=== PATIENT | male | born 1945 | race Caucasian/White ===

== ENCOUNTER 2019-05-16 12:40 | Outpatient (RCR) | payer OTHER, SELFPAY ==
[2019-02-22 13:29] LABS: INR 2.6; Prothrombin Time 27.3 Seconds (11.1-14.7)
[2019-03-25 15:11] LABS: INR 4.1; Prothrombin Time 39.2 Seconds (11.1-14.7)
[2019-03-28 14:30] LABS: INR 2.5; Prothrombin Time 26.6 Seconds (11.1-14.7)
[2019-04-04 15:50] LABS: INR 2.5; Prothrombin Time 26.8 Seconds (11.1-14.7)
[2019-04-11 14:35] LABS: INR 2.2; Prothrombin Time 23.6 Seconds (11.1-14.7)
[2019-04-25 14:33] LABS: INR 2.8; Prothrombin Time 29.1 Seconds (11.1-14.7)
[2019-05-16 13:59] LABS: Alanine Aminotransferase 20 U/L (4-50); Albumin Level 3.9 g/dL (3.5-5.1); Alkaline Phosphatase 71 U/L (38-126); Aspartate Amino Transferase 25 U/L (17-59); Bilirubin,Total 0.6 mg/dL (0.2-1.3); Blood Urea Nitrogen 22 mg/dL (9-20); Calcium 9.4 mg/dL (8.4-10.2); Carbon Dioxide 27 mmol/L (22-30); Chloride 100 mmol/L (98-107); Cholesterol 108 mg/dL (0-200); Estimated Glomerular Filt Rate > 60; Glucose 140 mg/dL (75-110); HDL Direct 38 mg/dL; Potassium 3.7 mmol/L (3.4-5.0); Sodium 142 mmol/L (137-145); Triglycerides 103 mg/dL (<150)
[2019-05-16 14:05] LABS: INR 2.3; Prothrombin Time 25.1 Seconds (11.1-14.7)
[2019-05-16 14:10] LABS: LDL Cholesterol Direct 56 mg/dL
[2019-05-16 14:29] LABS: Hemoglobin A1C 6.3 % (<5.7); Prostate Specific Antigen 0.6 ng/mL (< OR = 4.0)
== END 2019-05-23 23:59 | disposition home or self-care (01) ==
LOC: ANHLAB 12:40
PROVIDERS: PCP Emergency Medicine
DX: Z51.81 Encounter for therapeutic drug level monitoring (principal); I48.91 Unspecified atrial fibrillation; E11.9 Type 2 diabetes mellitus without complications; E78.5 Hyperlipidemia, unspecified; Z79.01 Long term (current) use of anticoagulants; Z12.5 Encounter for screening for malignant neoplasm of prostate
CPT/HCPCS: 36415; 80053; 80061; 83036; 84153; 85610; G0103

== ENCOUNTER 2020-01-23 14:42 | Outpatient (CLI) | payer OTHER, SELFPAY ==
--- NOTE | ~2020-01-23 | XR_ITS ---
XR chest 2V DATE: 01/23/2020 15:03 INDICATION: Chronic obstructive pulmonary disease TECHNIQUE: PA and lateral views COMPARISON: 01/04/2019 PA and lateral chest FINDINGS: There is interval resolution of bibasilar infiltrate or atelectasis and small pleural effus ions since 01/04/2019. Borderline heart size. Aortic arch calcification. No hilar or mediastinal enlargement. IMPRESSION: Interval virtual resolution of mild bibasilar infiltrate or atelectasis and small pleural effusions since 01/04/2019 Reviewed, dictated and finalized at location A. IMPRESSION: Interval virtual resolution of mild bibasilar infiltrate or atelect asis and small pleural effusions since 01/04/2019
== END 2020-01-23 14:43 | disposition home or self-care (01) ==
LOC: ANHIMG 14:49
PROVIDERS: PCP Student in an Organized Health Care Education/Training Program; Visit Provider Internal Medicine Critical Care Medicine
DX: J44.9 Chronic obstructive pulmonary disease, unspecified (principal)
CPT/HCPCS: 71046

== ENCOUNTER 2020-02-19 08:40 | Outpatient (CLI) | payer OTHER, SELFPAY ==
[2020-02-19 08:45] VITALS: PULSE 74; O2SAT 92
[2020-02-19 08:50] VITALS: PULSE 85; O2SAT 86
[2020-02-19 08:55] VITALS: PULSE 90; O2SAT 88
[2020-02-19 09:00] VITALS: PULSE 92; O2SAT 90
[2020-02-19 09:15] VITALS: PULSE 75; O2SAT 92
--- NOTE | 2020-02-19 11:00 | HOMEO2EVAL ---
Home Oxygen Evaluation RC: Home Oxygen (O2) Evaluation Start: 02/19/20 10:58 Freq: Status: Active Protocol: RPE Activity Type Activity Date Activity User E-Sign Co-Sign Detail Recorded Client Recorded Date Recorded By Document 02/19/20 08:45 [email or web address] [id number] 02/19/20 11:00 DJO Document 02/19/20 08:50 [email or web address] [email or web address] 02/19/20 11:00 DJO Document 02/19/20 08:55 [email or web address] [email or web address] 02/19/20 11:00 DJO Document 02/19/20 09:00 [email or web address] [email or web address] 02/19/20 11:00 DJO Document 02/19/20 09:15 [email or web address] [email or web address] 02/19/20 11:00 DJO 02/19/20 02/19/20 02/19/20 08:45 08:50 08:55 Home O2 Evaluation Test Phase Resting Exercise Exercise Oxygen Delivery Room Air Room Air Nasal Cannula Oxygen Flow Rate (L/min) 1 Pulse Oximetry (90-100 %) 92 86 L 88 L Pulse Rate (60-100 beats/min) 74 85 90 Ambulation Distance (feet) Treatment Charges O2 Evaluation 02/19/20 02/19/20 09:00 09:15 Home O2 Evaluation Test Phase Exercise Resting Oxygen Delivery Nasal Cannula Room Air Oxygen Flow Rate (L/min) 2 Pulse Oximetry (90-100 %) 90 92 Pulse Rate (60-100 beats/min) 92 75 Ambulation Distance (feet) 500 Treatment Charges
--- NOTE | 2020-02-21 12:09 | WPDPFTINT ---
PFT Interpretation PFT Interpretation: This PFT met all criteria for ATS standards and reproducibility FEV/FVC post bronchodilator 69% FEV1 77% or 2.01 liters FVC 76% or 2.94 liters TLC 104% RV 111% RV/TLC 44% DLCO 58% when adjusted for alveolar volume but not adjusted for hemoglobin Flow volume loops showed significant airflow obstruction Impression: Moderate airflow obstruction with moderately reduced diffusion capacity. This pattern is suggestive of COPD. Clinical correlation is advised.
== END 2020-02-19 08:41 | disposition home or self-care (01) ==
PROVIDERS: PCP Student in an Organized Health Care Education/Training Program; Visit Provider Internal Medicine Critical Care Medicine
DX: J44.9 Chronic obstructive pulmonary disease, unspecified (principal); R94.2 Abnormal results of pulmonary function studies
CPT/HCPCS: 94618

== ENCOUNTER → 2020-05-01 12:47 | Outpatient (CLI) | payer OTHER, SELFPAY ==
--- NOTE | ~2020-05-01 | US_ITS ---
EXAMINATION: US retroperitoneal comp EXAM DATE: 05/01/2020 13:09 INDICATION: Elevated BUN and serum creatinine. TECHNIQUE: Multiple grayscale and Doppler images of the kidneys were obtained (by a technologist who performed the scan) and subsequently reviewed. Comparison is made to prior examination from 04/14/2014 . FINDINGS: Right kidney: There is normal contour and echogenicity. It measures 11.2 x 6.8 x 5.7 centimeters. T here are no focal renal lesions identified. There is no hydronephrosis. Left kidney: There is normal contour and echogenicity. It measures 11.9 x 6.1 x 7.1 centimeters. The re are several lesions consistent with cysts measuring up to 5 cm. There is no hydronephrosis. Bladder unremarkable. IMPRESSION: 1. Left renal cysts. 2. No hydronephrosis. Reviewed, dictated and finalized at location B. [employer] DEVELOPER
== END ==
PROVIDERS: PCP Student in an Organized Health Care Education/Training Program; Visit Provider Student in an Organized Health Care Education/Training Program
DX: R79.89 Other specified abnormal findings of blood chemistry (principal); R79.9 Abnormal finding of blood chemistry, unspecified; N28.1 Cyst of kidney, acquired
CPT/HCPCS: 76770

== ENCOUNTER 2020-06-06 22:12 | Observation (INO) | payer OTHER, SELFPAY ==
--- NOTE | ~2020-06-06 | XR_ITS ---
EXAMINATION: XR chest 1V portable DATE: 06/06/2020 22:35 INDICATION: Fever. TECHNIQUE: A single frontal view of the chest was obtained. COMPARISON: Chest 2 views 01/23/2020, CT abdomen and pelvis 07/28/16 FINDINGS: There is no pneumonia, pleural effusion, or pneumothorax. Cardiomegaly is noted. IMPRESSION: 1. Cardiomegaly. Reviewed, dictated and finalized at location A. IMPRESSION: 1. Cardiomegaly.
--- NOTE | 2020-06-06 22:11 | PC.NURSE ---
Pt presents to ED from home with complaints of bilateral lower extremity weakness. Pt states he was attempting to ambulate and slid out of the bed . Pt states that he did not hit his head and denies all pain and discomfort. No obvious injuries noted to head, face and extremities. Pt states he has been having persistent headaches but denies headaches at this time. Pt alert and oriented x4. Resting on cart in its lowest position with call button and personal items within reach. Pt advised to press call button for assistance.
[2020-06-06 22:13] VITALS: BP 141/77; PULSE 78; RESP 21; TEMP 38.1; O2SAT 93
--- NOTE | 2020-06-06 22:18 | ED.WEAKNESS ---
HPI - Weakness General Chief complaint: Weakness Stated complaint: weakness Time Seen by Provider: 06/06/20 22:12 History of Present Illness HPI Narrative: 74 yo male w/ h/o DM, htn, hypothyroidism presents to the ED for weakness. He reportedly slid to the ground and was too weak to get himself off the ground. On arrival to the ED he has a temperature of 100.5. He denies any other symptoms at this time. He completed his COVID-19 vaccination yesterday. Related Data Home Medications Medication Instructions Recorded Confirmed latanoprost 0.005 % eye drops See Rx Instructions .ROUTE .COMPLEX 02/01/19 albuterol sulfate 90 mcg/actuation 2 puff INHALATION Q4-6H PRN gm 03/12/19 02/26/20 aerosol inhaler amlodipine 10 mg tablet 10 mg PO DAILY 03/12/19 02/26/20 ascorbate calcium (vitamin C) 500 500 mg PO DAILY 03/12/19 02/26/20 mg tablet aspirin 81 mg tablet,delayed 81 mg PO DAILY 03/12/19 02/26/20 release chlorthalidone 25 mg tablet 25 mg PO DAILY 03/12/19 02/26/20 cholecalciferol (vitamin D3) 50 2,000 unit PO DAILY 03/12/19 02/26/20 mcg (2,000 unit) capsule flaxseed 1,000 mg capsule mg PO .BID daily cap 03/12/19 02/26/20 hydralazine 50 mg tablet 50 mg PO .TID with food tablet 03/12/19 02/26/20 lisinopril 40 mg tablet 40 mg PO DAILY 03/12/19 02/26/20 metformin 1,000 mg tablet See Rx Instructions .ROUTE .COMPLEX 03/12/19 02/26/20 multivit,Ca,min-iron 8 mg-folic tablet PO .Daily tablet 03/12/19 02/26/20 acid 200 mcg-lycopene 600 mcg tablet rytdkqwntpgk-wyelccav-pgxuat tablet 1 tablet PO DAILY 03/12/19 02/26/20 sertraline 25 mg tablet See Rx Instructions .ROUTE .COMPLEX 03/12/19 02/26/20 sodium chloride 5 % eye drops See Rx Instructions .ROUTE .COMPLEX 03/12/19 02/26/20 timolol 0.5 % eye drops See Rx Instructions .ROUTE .COMPLEX 03/12/19 02/26/20 timolol maleate 0.5 % eye drops 1 drop EACH EYE DAILY ml 03/12/19 02/26/20 warfarin 2 mg tablet See Rx Instructions .ROUTE .COMPLEX 03/12/19 02/26/20 Allergies Allergy/AdvReac Type Severity Reaction Status Date / Time latex AdvReac Unknown Unknown Verified 02/26/20 13:12 Sulfa (Sulfonamide AdvReac Unknown unk Verified 02/26/20 13:12 Antibiotics) Review of Systems Review of Systems: All systems reviewed & are unremarkable except as noted in HPI and below Constitutional: Constitutional: Reports fever(s) and Reports weakness Eyes: Eyes: Reports no additional eye complaints ENT: Denies sore throat Cardiovascular: Cardiovascular: Denies chest pain Respiratory: Respiratory: Denies dyspnea Gastrointestinal: Gastrointestinal: Denies abdominal pain, Denies nausea and Denies vomiting Genitourinary: Genitourinary: Denies hematuria, Denies dysuria and Reports urinary frequency Musculoskeletal: Musculoskeletal: Denies back pain Neurologic: Denies dizziness, Denies headache(s) and Reports weakness Endocrine: Endocrine: Reports polyuria PMFSH Past Medical History Medical History (Updated 06/07/20 @ 00:03 by Gabriel Calloway MD) Chronic obstructive pulmonary disease Diabetes mellitus HLD (hyperlipidemia) HTN (hypertension) PETER (obstructive sleep apnea) Family History Family History Sibling Family history of cardiovascular disease Family history of Alzheimer's disease Father Family history of cardiovascular disease, Onset Age: 89 Social History Social History Smoking status: Heavy tobacco smoker Alcohol intake: never Exam Const: General: no acute distress, alert and ill appearing Orientation/consciousness: patient oriented x3 HENMT: Head: normal to inspection Neck: Neck: normal visual inspection and no lymphadenopathy Chest: Chest palpation & inspection: no tenderness Resp: Effort & Inspection: normal respiratory effort Auscultation: clear to auscultation bilaterally, no rales, no rhonchi and no wheezes Cardio:
[2020-06-06 22:29] VITALS: BP 141/77; PULSE 84; RESP 21; O2SAT 98
--- NOTE | 2020-06-06 22:29 | PC.NURSE ---
CXR completed at bedside.
[2020-06-06 22:58] LABS: Basophils Percent Auto 0.4 % (0.2-1.2); Eosinophils Absolute Auto 0.1 K/mm3 (0-0.3); Hematocrit 39.9 % (42.0-52.0); Hemoglobin 12.8 g/dL (14.0-18.0); Immature Granulocyte Absolute 0.03 K/mm3 (0.00-0.031); Immature Granulocyte Percent A 0.4 % (0-0.5); Lymphocytes Absolute Auto 0.64 K/mm3 (0.9-3.2); Lymphocytes Percent Auto 8.4 % (18.3-44.2); Mean Corpuscular HGB Conc 32.1 g/dl (32-36); Mean Corpuscular Hemoglobin 31.6 pg (26-34); Mean Corpuscular Volume 98.5 fl (80-100); Mean Platelet Volume 10.2 fl (7.4-10.4); Monocytes Absolute Auto 0.8 K/mm3 (0.1-0.6); Monocytes Percent Auto 10.4 % (2.6-8.5); Neutrophils Absolute Auto 6.1 K/mm3 (1.3-6.7); Neutrophils Percent Auto 79.4 % (45.5-73.1); Platelet Count Result 156 k/mm3 (150-375); Red Blood Count 4.05 M/mm3 (4.6-6.20); Red Cell Distribution Width 14.5 % (11.5-14.5); White Blood Count 7.6 K/mm3 (4.5-10.0)
[2020-06-06 23:08] LABS: INR 1.4; Prothrombin Time 18.2 Seconds (11.1-14.7)
[2020-06-06 23:09] LABS: Partial Thromboplastin Time 34.2 SECONDS (22.3-36.8)
[2020-06-06 23:14] LABS: Lactic Acid Reflex 1.5 mmol/L (0.7-2.1)
[2020-06-06 23:15] LABS: Alanine Aminotransferase 15 U/L (4-50); Albumin Level 4.1 g/dL (3.5-5.1); Alkaline Phosphatase 71 U/L (38-126); Anion Gap 7 mmol/L (8-16); Aspartate Amino Transferase 22 U/L (17-59); Bilirubin,Total 0.6 mg/dL (0.2-1.3); Blood Urea Nitrogen 28 mg/dL (9-20); CRP 2.2 mg/dL (<1.0); Calcium 9.4 mg/dL (8.4-10.2); Carbon Dioxide 32 mmol/L (22-30); Chloride 99 mmol/L (98-107); Estimated CRCL calculation 56 ml/min; Estimated Glomerular Filt Rate 54; Glucose 177 mg/dL (75-110); Potassium 3.8 mmol/L (3.4-5.0); Sodium 138 mmol/L (137-145)
[2020-06-06 23:37] LABS: Add Urine Microscopic? YES; Appearance Urine Clear (Clear); Bilirubin Urine Negative (Negative); Blood Urine 1+ (Negative); Color Urine Yellow (Yellow); Glucose Urine UA Negative (Negative); Hyaline Casts Urine 15-19 /lpf; Ketones Urine Negative (Negative); Leukocyte Esterase Ur Negative LEU/UL (Negative); Mucus Urine Rare /lpf; Nitrate Urine Negative (Negative); Protein Urine 1+ mg/dL (Negative); RBC Urine 0-2 /hpf (0-2); Specific Grav Ur 1.013 (1.001-1.035); Squamous Epithelial Cell Urine Rare /hpf (Few); Urobilinogen Urine Negative mg/dL (<2.0); WBC Urine 0-3 /hpf
[2020-06-06 23:48] VITALS: BP 151/69; PULSE 70; RESP 23; O2SAT 95
--- NOTE | 2020-06-06 23:48 | PC.NURSE ---
Pt resting on cart in its lowest position. Pt noted to desaturate to 80%. Nasal cannula replaced as the cannula he presented with was not functioning properly. Pt resting on cart in its lowest position with call button and personal items within reach. Pt advised to press call button for assistance.
[2020-06-07] VITALS (12 sets, daily range): BP systolic 98–132; BP diastolic 50–88; PULSE 48–74; RESP 16–28; TEMP 36.6–37.4; O2SAT 94–98; BMI 39.6
--- NOTE | 2020-06-07 00:54 | PC.NURSE ---
Pt resting on cart in its lowest position with call button and personal items within reach. SBAR faxed to #rd Med/Surg.
--- NOTE | 2020-06-07 01:16 | PC.NURSE ---
Report called to receiving nurse, Samuel. NICOLE to send pt to floor.
--- NOTE | 2020-06-07 04:50 | ADMGEN ---
This patient, Shon Bradley, was admitted to [facility] Surg Room 307-01. Patient/family oriented to hospital policies and general routines including ID bracelet, bed and alarms, visiting hours, pain management, procedures, bathroom and other care routines, personal items, smoking policy, room service/diet, and visiting hours. Information on how to activate the Rapid Response Team has been discussed. Patient/Family are encouraged to report perceived risks to care and to ask questions if they do not understand what they are told or what they should do.
[2020-06-07 08:20] LABS: Glucose Point of Care 145 (65-105)
[2020-06-07] MEDS: DEXTROSE 5%/0.9% SOD CHL 1,000 ML 80 ML IV CONT ×2 (08:21→20:52)
--- NOTE | 2020-06-07 08:58 | PM.IMHP ---
H&P: HPI History of Present Illness Date/Time: 06/07/20 08:58 Chief Complaint: 1 generalized weakness. 2. Fever 100.5. Narrative: 74 years old male with history of hypertension, history of high cholesterol, obesity, coronary artery disease was admitted through emergency room last night with complaints the patient received COVID vaccination yesterday and after few hours of COVID vaccination administration patient started feeling body ache, generalized weakness. On arrival in ER patient had a fever of 100.5. Patient denies any shortness of breath chest pain. No nausea vomiting. No tongue swelling. Since admission patient is afebrile now and has good strength. Patient is feeling fine at present time. Review of Systems Review of Systems: All systems reviewed & are unremarkable except as noted in HPI and below (the history and physical exam.) [facility] Past Medical History Medical History (Updated 06/07/20 @ 09:08 by Fidel Vance MD) Chronic obstructive pulmonary disease Diabetes mellitus HLD (hyperlipidemia) HTN (hypertension) PETER (obstructive sleep apnea) Family History Family History Sibling Family history of cardiovascular disease Family history of Alzheimer's disease Father Family history of cardiovascular disease, Onset Age: 89 Social History Social History Smoking status: Former smoker Tobacco type: cigarettes Smoking end date: 12/04/19 Alcohol intake: never Substance use: never Gender identity (if verbalized by the patient): Male Spiritual care concerns: No Meds Home Medications and Allergies Home Medications Medication Instructions Recorded Confirmed Type ascorbate calcium (vitamin C) 500 500 mg PO DAILY 03/12/19 06/07/20 History mg tablet aspirin 81 mg tablet,delayed 81 mg PO DAILY 03/12/19 06/07/20 History release chlorthalidone 25 mg tablet 25 mg PO DAILY 03/12/19 06/07/20 History sertraline 25 mg tablet mg PO DAILY 03/12/19 02/26/20 History sodium chloride 5 % eye drops See Rx Instructions .ROUTE .COMPLEX 03/12/19 02/26/20 History timolol maleate 0.5 % eye drops 1 drop EACH EYE DAILY ml 03/12/19 06/07/20 History latanoprost 0.005 % eye drops See Rx Instructions .ROUTE 03/22/19 06/07/20 Rx .COMPLEX #2.5 ml atorvastatin 40 mg tablet 40 mg PO DAILY #90 tablet 03/25/19 06/07/20 Rx acyclovir 400 mg PO QID 06/07/20 06/07/20 History apixaban [Eliquis] mg PO BID 06/07/20 History doxycycline monohydrate 100 mg PO DAILY 06/07/20 06/07/20 History ferrous sulfate 325 mg PO DAILY 06/07/20 06/07/20 History lisinopril 5 mg PO DAILY 06/07/20 06/07/20 History metoprolol succinate 25 mg PO Q12H 06/07/20 06/07/20 History potassium chloride [Klor-Con M20] 20 meq PO DAILY 06/07/20 06/07/20 History Allergies Allergy/AdvReac Type Severity Reaction Status Date / Time latex AdvReac Unknown Unknown Verified 02/26/20 13:12 Sulfa (Sulfonamide AdvReac Unknown unk Verified 02/26/20 13:12 Antibiotics) Vital Signs Vital Signs - 24 hr 06/06/20 22:13 06/06/20 22:29 06/06/20 23:48 Temperature 38.1 C H Pulse Rate 78 84 70 Respiratory Rate 21 H 21 H 23 H Blood Pressure 141/77 H 141/77 H 151/69 H Pulse Oximetry 93 98 95 06/07/20 00:55 06/07/20 03:00 06/07/20 04:00 Temperature 36.9 C 37.0 C Pulse Rate 74 62 72 Respiratory Rate 16 18 Blood Pressure 107/53 L 98/50 L Pulse Oximetry 95 95 94 06/07/20 08:16 06/07/20 08:40 Temperature 36.8 C Pulse Rate 65 Respiratory Rate 20 Blood Pressure 114/59 L Pulse Oximetry 95 95 Exam Narrative: Exam Narrative: Const: General: no acute distress, alert and ill appearing Orientation/consciousness: patient oriented x3 HENMT: Head: normal to inspection Neck: Neck: normal visual inspection and no lymphadenopathy Chest: Chest palpation & inspection: no tenderness Resp: Effort & Inspection: normal respira
[2020-06-07] MEDS: POTASSIUM CHLORIDE 20 MEQ TABLET.ER PO (11:46)
[2020-06-07] MEDS: CHLORTHALIDONE 25 MG TABLET PO (11:46)
[2020-06-07] MEDS: METOPROLOL SUCCINATE EXT REL 25 MG TABCR PO (11:46)
[2020-06-07] MEDS: ASPIRIN 81 MG ENTERIC TABLET PO (11:46)
[2020-06-07] MEDS: FERROUS SULFATE 324 MG TABLET PO (11:46)
[2020-06-07] MEDS: lisinopriL 5 MG TABLET PO (11:47)
[2020-06-07] MEDS: ACYCLOVIR 400 MG TABLET PO ×4 (11:47→20:52)
[2020-06-07] MEDS: ASCORBIC ACID 500 MG TABLET PO (11:47)
[2020-06-07] MEDS: TIMOLOL MALEATE 0.5% OP SOLN 5 ML BOTTLE 1 DROP EACH EYE (11:47)
[2020-06-07] MEDS: DOXYCYCLINE HYCLATE 100 MG TABLET PO (11:47)
[2020-06-07] MEDS: APIXABAN 5 MG TABLET PO ×2 (11:47→17:24)
[2020-06-07] MEDS: ATORVASTATIN 40 MG TABLET PO (11:47)
[2020-06-07 12:36] LABS: Glucose Point of Care 251 (65-105)
[2020-06-07] MEDS: INSULIN ASPART (*BKC) 100 UNITS/ML SUB-Q (13:19)
[2020-06-07 16:54] LABS: Glucose Point of Care 195 (65-105)
[2020-06-07] MEDS: LATANOPROST 0.005% OP SOLN 2.5 ML BTL 1 DROP EACH EYE (20:52)
--- NOTE | 2020-06-07 21:40 | PC.NURSE ---
Patient heart rate drops into the 40's is asymptomatic during the time and doesn't sustain. Patient is getting very agitated with the heart monitor box beeping. MD said ok to drop the rate alarm. Will continue to monitor the patient and notify MD if needed.
[2020-06-07 22:45] LABS: Glucose Point of Care 209 (65-105)
[2020-06-08] VITALS: PULSE 46
[2020-06-08 01:56] VITALS: PULSE 56; RESP 19; O2SAT 95
[2020-06-08 04:00] VITALS: BP 116/55; PULSE 57; RESP 20; TEMP 36.6; O2SAT 98
[2020-06-08] MEDS: DOXYCYCLINE HYCLATE 100 MG TABLET PO (06:30)
[2020-06-08 06:48] LABS: Potassium 3.9 mmol/L (3.4-5.0)
[2020-06-08 07:58] VITALS: PULSE 51
[2020-06-08 07:59] LABS: Glucose Point of Care 204 (65-105)
[2020-06-08 08:00] VITALS: BP 107/52; PULSE 47; PULSE 50; RESP 18; TEMP 36.4; O2SAT 100
[2020-06-08] MEDS: INSULIN ASPART (*BKC) 100 UNITS/ML SUB-Q ×2 (08:36→12:18)
[2020-06-08] MEDS: TIMOLOL MALEATE 0.5% OP SOLN 5 ML BOTTLE 1 DROP EACH EYE (08:38)
[2020-06-08] MEDS: POTASSIUM CHLORIDE 20 MEQ TABLET.ER PO (08:39)
[2020-06-08] MEDS: ASCORBIC ACID 500 MG TABLET PO (08:39)
[2020-06-08] MEDS: ACYCLOVIR 400 MG TABLET PO ×2 (08:39→12:19)
[2020-06-08] MEDS: ASPIRIN 81 MG ENTERIC TABLET PO (08:39)
[2020-06-08] MEDS: APIXABAN 5 MG TABLET PO (08:39)
[2020-06-08] MEDS: FERROUS SULFATE 324 MG TABLET PO (08:39)
[2020-06-08] MEDS: CHLORTHALIDONE 25 MG TABLET PO (08:39)
[2020-06-08] MEDS: lisinopriL 5 MG TABLET PO (08:40)
[2020-06-08] MEDS: ATORVASTATIN 40 MG TABLET PO (08:40)
[2020-06-08] MEDS: DEXTROSE 5%/0.9% SOD CHL 1,000 ML 80 ML IV CONT (11:10)
[2020-06-08 12:00] VITALS: BP 123/80; PULSE 55; RESP 18; TEMP 36.6; O2SAT 94
[2020-06-08 12:59] LABS: SARS-CoV-2 RNA PCR Negative
[2020-06-08 13:33] LABS: Glucose Point of Care 325 (65-105)
--- NOTE | 2020-06-08 13:57 | PM.DS ---
DS: Admitting Diagnosis Admitting Diagnosis Admitting Diagnosis: Generalized weakness DS: Discharge Diagnosis Discharge Diagnosis (1) Adverse reaction to vaccine: Code(s): T50.Z95A - Adverse effect of other vaccines and biological substances, initial encounter Status: Acute Assessment and Plan: Patient most likely has reaction to the COVID vaccine. Will monitor patient closely at present patient is feeling better. (2) Generalized weakness: Code(s): R53.1 - Weakness Status: Acute Assessment and Plan: Most likely secondary to the vaccination but patient is feeling better now will continue to monitor. (3) Fever: Qualifiers: Encounter type: initial encounter Code(s): R50.9 - Fever, unspecified Status: Acute Assessment and Plan: Patient is afebrile at present most likely it was secondary to COVID vaccine. However blood culture and urine culture have been ordered a chest x-ray is negative (4) PETER (obstructive sleep apnea): Code(s): G47.33 - Obstructive sleep apnea (adult) (pediatric) Status: Acute Assessment and Plan: Stable will continue current plan of treatment. (5) HLD (hyperlipidemia): Qualifiers: Hyperlipidemia type: mixed hyperlipidemia Qualified Code(s): E78.2 - Mixed hyperlipidemia Code(s): E78.5 - Hyperlipidemia, unspecified Status: Acute Assessment and Plan: Stable on current medication. (6) Hypertension: Code(s): I10 - Essential (primary) hypertension Status: Acute Assessment and Plan: Stable on current medication. (7) CAD (coronary artery disease): Code(s): I25.10 - Atherosclerotic heart disease of [place] coronary artery without angina pectoris Status: Acute Assessment and Plan: Stable on current medication. DS: Summary Hospital Course Reason for hospitalization: Chief Complaint: 1 generalized weakness. 2. Fever 100.5. Narrative: 74 years old male with history of hypertension, history of high cholesterol, obesity, coronary artery disease was admitted through emergency room last night with complaints the patient received COVID vaccination yesterday and after few hours of COVID vaccination administration patient started feeling body ache, generalized weakness. On arrival in ER patient had a fever of 100.5. Patient denies any shortness of breath chest pain. No nausea vomiting. No tongue swelling. Since admission patient is afebrile now and has good strength. Patient is feeling fine at present time. Hospital Course: Patient COVID test was negative, has no fever, his clinically stable, most likely patient had a flu-like symptoms after he received COVID vaccine, patient is clinically stable discharge the patient today Status at Discharge Functional status at discharge: independent ambulation Overall status at discharge: patient is back to baseline Time Spent with Patient Time attestation: Total time spent providing and/or coordinating discharge services: Patient was seen and examined at the time of the discharge Condition at discharge is stable Code status: Full code. Time spent preparing discharge summary, discharge medications, discussing discharge planning with case management specialist and patient is 30 minutes. Time spent: Less than 30 minutes Exam Narrative: Exam Narrative: Patient is comfortable, NAD HEENT: eyes are clear and none icteric LUNGS:CTA HEART: RR S1S2 ABD: BS+, Soft and nontender Lower extremities: no edema SKIN: nonjaundiced Neuro: grossly intact. DS: Data Data Completed and Pending Labs on day of discharge: Labs from last 24 hours 06/08/20 06/08/20 06/08/20 12:13 07:57 06:26 Potassium 3.9 POC Capillary Glucose 325 H 204 H SARS-CoV-2 RNA (RT-PCR) 06/07/20 06/07/20 06/06/20 20:51 16:46 23:11 Potassium POC Capillary Glucose 209 H 195 H SARS-CoV-2 RNA (RT-PCR) Negative Preliminary micro results at
== END 2020-06-08 14:50 | disposition home or self-care (01) ==
LOC: ANHED 06-07 00:03 → ANH3MEDSUR 06-07 00:06
PROVIDERS: Internal Medicine; Admitting Provider Family Medicine; Emergency Provider Emergency Medicine; PCP Student in an Organized Health Care Education/Training Program; Visit Provider Family Medicine
DX: R53.1 Weakness (principal); R50.9 Fever, unspecified; T50.Z95A Adverse effect of other vaccines and biological substances, initial encounter; Z20.822 Contact with and (suspected) exposure to COVID-19; E11.9 Type 2 diabetes mellitus without complications; E03.9 Hypothyroidism, unspecified; E78.5 Hyperlipidemia, unspecified; E66.9 Obesity, unspecified; J44.9 Chronic obstructive pulmonary disease, unspecified; G47.33 Obstructive sleep apnea (adult) (pediatric); I10 Essential (primary) hypertension; I25.10 Atherosclerotic heart disease of native coronary artery without angina pectoris; Z87.891 Personal history of nicotine dependence; Z79.4 Long term (current) use of insulin; Z68.39 Body mass index [BMI] 39.0-39.9, adult
CPT/HCPCS: 36415; 71045; 80053; 81001; 82948; 83605; 84132; 85025; 85610; 85730; 86140; 87040; 87086; 87804; 96361; 96365; 99285; A9270; C9803; G0378; J0131; J1815; J7042; U0003; U0005

== ENCOUNTER 2021-01-07 11:01 | Outpatient (CLI) | payer OTHER, SELFPAY ==
--- NOTE | 2021-01-07 11:11 | ECG_ITS ---
Measurements Intervals [place] Rate: 66 P: CA: 0 QRS: 11 QRSD: 112 T: 14 QT: 387 QTc: 407 Interpretive Statements ATRIAL FIBRILLATION BORDERLINE R WAVE PROGRESSION, ANTERIOR LEADS BORDERLINE T WAVE ABNORMALITY- INFERIOR LEADS BASELINE ARTIFACT- I, II, III, AVR, AVL, AVF ABNORMAL ECG Electronically Signed On 01-07-2021 11:29:49 CDT by Awais Crump D.O.
[2021-01-07 12:02] LABS: Hematocrit 46.1 % (42.0-52.0); Hemoglobin 15.1 g/dL (14.0-18.0)
[2021-01-07 12:32] LABS: Anion Gap 12 mmol/L (8-16); Blood Urea Nitrogen 39 mg/dL (9-20); Calcium 9.5 mg/dL (8.4-10.2); Carbon Dioxide 29 mmol/L (22-30); Chloride 101 mmol/L (98-107); Estimated Glomerular Filt Rate 46; Glucose 113 mg/dL (65-110); Sodium 142 mmol/L (137-145)
== END 2021-01-07 11:02 | disposition home or self-care (01) ==
LOC: ANHSURGERY 11:06
PROVIDERS: Anesthesiology; PCP Student in an Organized Health Care Education/Training Program; Visit Provider Dentist
DX: Z01.818 Encounter for other preprocedural examination (principal); E11.9 Type 2 diabetes mellitus without complications; D64.9 Anemia, unspecified; R94.31 Abnormal electrocardiogram [ECG] [EKG]
CPT/HCPCS: 36415; 80048; 85014; 85018; 93005

== ENCOUNTER 2021-01-14 01:59 | Day surgery (SDC) | payer OTHER, SELFPAY ==
[2021-01-01 14:35] VITALS: BMI 36.1
--- NOTE | 2021-01-13 10:55 | WPDANESEPPF ---
Anes - Initial Pre Proc Eval Procedure: Operation Date: 01/14/21 08:30 Proposed Procedures p Extractions of Nine Teeth - Fernandez Diaz DMD Date/Time: 01/13/21 10:55 Surgeon: Fernandez Diaz DMD Pre Op Diagnosis: dental caries, fractured teeth Patient Data Age: 75 Gender: M Height: 1.7 m Weight: 104.54 kg Allergies Allergy/AdvReac Type Severity Reaction Status Date / Time latex AdvReac Unknown SKIN Verified 01/01/21 14:17 IRRITATION Home Medications Medication Instructions Recorded Confirmed Type aspirin 81 mg tablet,delayed 81 mg PO DAILY 03/12/19 01/01/21 History release chlorthalidone 25 mg tablet 25 mg PO DAILY 03/12/19 01/01/21 History sertraline 25 mg tablet 25 mg PO BID 03/12/19 01/01/21 History sodium chloride 5 % eye drops See Rx Instructions .ROUTE .COMPLEX 03/12/19 01/01/21 History timolol maleate 0.5 % eye drops 1 drop EACH EYE DAILY ml 03/12/19 01/01/21 History latanoprost 0.005 % eye drops See Rx Instructions .ROUTE 03/22/19 01/01/21 Rx .COMPLEX #2.5 ml Eliquis 5 mg PO BID 06/07/20 01/01/21 History acyclovir 800 mg PO BID 06/07/20 01/01/21 History doxycycline monohydrate 100 mg PO DAILY 06/07/20 01/01/21 History lisinopril 5 mg PO DAILY 06/07/20 01/01/21 History metoprolol succinate 25 mg PO Q12H 06/07/20 01/01/21 History potassium chloride [Klor-Con M20] 20 meq PO DAILY 06/07/20 01/01/21 History acetaminophen [Tylenol] 650 mg PO QID PRN 01/01/21 01/01/21 History albuterol sulfate 2 puff INHALATION QID PRN 01/01/21 01/01/21 History atorvastatin 40 mg PO HS 01/01/21 01/01/21 History cetirizine [Zyrtec] 10 mg PO DAILY 01/01/21 01/01/21 History cholecalciferol (vitamin D3) 25 mcg PO DAILY 01/01/21 01/01/21 History furosemide 20 mg BID 01/01/21 01/01/21 History methazolamide 50 mg BID 01/01/21 01/01/21 History semaglutide [Ozempic] 1 mg SUBCUT WEEKLY 01/01/21 01/01/21 History Patient hx anesthesia problems: none Family hx anesthesia problems: none Results Review: All pre-operative results and documents have been reviewed as part of the pre-operative evaluation. [facility] Past Medical History Medical History (Updated 01/14/21 @ 07:14 by Fernandez Diaz DMD) Atrial fibrillation CAD (coronary artery disease) CHF (congestive heart failure) Chronic obstructive pulmonary disease Diabetes mellitus HLD (hyperlipidemia) HTN (hypertension) On home O2 PETER (obstructive sleep apnea) Family History Family History Sibling Family history of cardiovascular disease Family history of Alzheimer's disease Father Family history of cardiovascular disease, Onset Age: 89 Social History Social History (Updated 09/29/20 @ 08:26 by Jenelle Cole [facility]) Smoking packs per day: 1 Smoking cigarettes per day: 20.0 Years smoked: 30 Smoking pack-years: 30.00 Smoking status: Former smoker Tobacco type: cigarettes Second hand tobacco smoke exposure: No Smoking end date: 12/04/19 Alcohol intake: never Substance use: never Substance use type: does not use Living arrangements: with family Additional living arrangements comments: LIVES WITH DAUGHTER Gender identity (if verbalized by the patient): Male Spiritual care concerns: No Anes - Eval Final PreProcedure Day of Procedure 01/13/21 10:55 Patient weight: obese Heart: regular rate and rhythm Lungs: clear to auscultation and normal air movement Airway: Mallampati scale class II and special considerations poor dentition Neurological: alert and oriented Last oral intake: >/= 8 hours ASA classification: IV Emergent: no Anesthetic plan: proceed Anesthesia type and monitoring: general ETT and standard monitoring Results Review: All pre-operative results and documents have been reviewed as part of the pre-operative evaluation. Informed Consent: The patient's anesthetic plan and its attendant risks and benefits were discussed with the patient/family/POA
[2021-01-14] VITALS (8 sets, daily range): BP systolic 118–145; BP diastolic 57–82; PULSE 57–86; RESP 18–22; TEMP 36.1–36.6; O2SAT 94–97
[2021-01-14] MEDS: LACTATED RINGERS 1,000 ML 30 ML IV CONT (07:12)
--- NOTE | 2021-01-14 07:13 | WPDHPUPDATE1 ---
History and Physical Update Update Date/Time: 01/14/21 07:13 History and Physical has been reviewed, including an updated exam of the patient. There are NO changes in the patient's condition. Risks, benefits, and alternatives have been discussed and questions answered. Patient agrees to proceed with procedure.
--- NOTE | 2021-01-14 07:14 | PM.IMHP ---
H&P: HPI History of Present Illness Date/Time: 01/14/21 07:14 Chief Complaint: bad teeth PMFSH Past Medical History Medical History (Updated 01/14/21 @ 07:14 by Fernandez Diaz DMD) Atrial fibrillation CAD (coronary artery disease) CHF (congestive heart failure) Chronic obstructive pulmonary disease Diabetes mellitus HLD (hyperlipidemia) HTN (hypertension) On home O2 PETER (obstructive sleep apnea) Family History Family History Sibling Family history of cardiovascular disease Family history of Alzheimer's disease Father Family history of cardiovascular disease, Onset Age: 89 Social History Social History (Updated 09/29/20 @ 08:26 by Jenelle Cole BUSINESS ANALYSIS SPECIALIST) Smoking packs per day: 1 Smoking cigarettes per day: 20.0 Years smoked: 30 Smoking pack-years: 30.00 Smoking status: Former smoker Tobacco type: cigarettes Second hand tobacco smoke exposure: No Smoking end date: 12/04/19 Alcohol intake: never Substance use: never Substance use type: does not use Living arrangements: with family Additional living arrangements comments: LIVES WITH DAUGHTER Gender identity (if verbalized by the patient): Male Spiritual care concerns: No Meds Home Medications and Allergies Home Medications Medication Instructions Recorded Confirmed Type aspirin 81 mg tablet,delayed 81 mg PO DAILY 03/12/19 01/01/21 History release chlorthalidone 25 mg tablet 25 mg PO DAILY 03/12/19 01/01/21 History sertraline 25 mg tablet 25 mg PO BID 03/12/19 01/01/21 History sodium chloride 5 % eye drops See Rx Instructions .ROUTE .COMPLEX 03/12/19 01/01/21 History timolol maleate 0.5 % eye drops 1 drop EACH EYE DAILY ml 03/12/19 01/01/21 History latanoprost 0.005 % eye drops See Rx Instructions .ROUTE 03/22/19 01/01/21 Rx .COMPLEX #2.5 ml Eliquis 5 mg PO BID 06/07/20 01/01/21 History acyclovir 800 mg PO BID 06/07/20 01/01/21 History doxycycline monohydrate 100 mg PO DAILY 06/07/20 01/01/21 History lisinopril 5 mg PO DAILY 06/07/20 01/01/21 History metoprolol succinate 25 mg PO Q12H 06/07/20 01/01/21 History potassium chloride [Klor-Con M20] 20 meq PO DAILY 06/07/20 01/01/21 History acetaminophen [Tylenol] 650 mg PO QID PRN 01/01/21 01/01/21 History albuterol sulfate 2 puff INHALATION QID PRN 01/01/21 01/01/21 History atorvastatin 40 mg PO HS 01/01/21 01/01/21 History cetirizine [Zyrtec] 10 mg PO DAILY 01/01/21 01/01/21 History cholecalciferol (vitamin D3) 25 mcg PO DAILY 01/01/21 01/01/21 History furosemide 20 mg BID 01/01/21 01/01/21 History methazolamide 50 mg BID 01/01/21 01/01/21 History semaglutide [Ozempic] 1 mg SUBCUT WEEKLY 01/01/21 01/01/21 History Allergies Allergy/AdvReac Type Severity Reaction Status Date / Time latex AdvReac Unknown SKIN Verified 01/01/21 14:17 IRRITATION Vital Signs Vital Signs - 24 hr 01/14/21 06:50 Temperature 36.1 C L Pulse Rate 61 Respiratory Rate 18 Blood Pressure 122/66 Pulse Oximetry 97 Assessment and Plan Assessment and plan (1) Non-restorable tooth: Code(s): K08.89 - Other specified disorders of teeth and supporting structures Status: Acute Assessment and Plan: multiple nonrestorable teeth. SR all lower teeth
[2021-01-14 07:20] LABS: Glucose Point of Care 116 mg/dl (65-105)
[2021-01-14] MEDS: OXYMETAZOLINE HCL 0.05% NAS 15 ML BTL (*BKC) 4 SPRAY NASAL (08:48)
[2021-01-14] MEDS: LIDOCAINE 2%-EPI (FOR DENTAL BLOCK) 1.7 ML CARTRIDGE INFILTRATE (08:49)
--- NOTE | 2021-01-14 09:08 | PM.OP ---
Procedure Note - Brief Procedure Note - Brief Date of procedure: 01/14/21 Pre-op diagnosis: dental caries, fractured teeth Surgeon: Fernandez Diaz DMD Preoperative diagnosis nonrestorable mandibular dentition postop diagnosis same procedure surgical removal remaining 9 mandibular teeth numbers [id number] 30 and 31. Complications none. Estimated blood loss 10cc. Anesthesia general anesthesia and 5cc of 2% lidocaine with 100,000 epinephrine. Description of the procedure patient was encountered in the operating room in the care of the Anesthesia Service who induced general anesthetic. Patient was draped in the usual manner for intraoral surgical procedure. Oral cavity was suctioned free of debris and throat pack was placed. Local anesthetic administered. Fifteen blade was used to make a circular incision in the left mandible. Full-thickness flaps elevated the buckle. And buccal trough was created in the remaining teeth were removed using a ring forceps technique without complication. Psych is curetted free of debris and irrigated copious amount sterile saline. Gingival tissues reapproximated using 4-0 chromic gut suture in interrupted fashion. Attention was turned to the right mandible were a sulcular incision was made and a full-thickness flaps elevated the buckle. Buccal trough was created in the teeth removed using elevator and forceps technique without complication. Psych is curetted free of debris and irrigated copious amounts of sterile saline. Gingival tissues reapproximated using 4-0 chromic gut suture in continuous fashion. Oral cavity suctioned free of debris and throat pack was removed. Gauze packs placed. Care the patient was turned to the issues Service extubated the patient transferred to recovery in stable condition.
[2021-01-14 09:16] LABS: Glucose Point of Care 128 mg/dl (65-105)
== END 2021-01-14 10:51 | disposition home or self-care (01) ==
PROVIDERS: PCP Student in an Organized Health Care Education/Training Program; Visit Provider Dentist
PROC: (CPT 41899; principal; 2021-01-14 08:30)
DX: K02.9 Dental caries, unspecified (principal); K08.89 Other specified disorders of teeth and supporting structures; I25.10 Atherosclerotic heart disease of native coronary artery without angina pectoris; I11.0 Hypertensive heart disease with heart failure; I50.9 Heart failure, unspecified; I48.91 Unspecified atrial fibrillation; J44.9 Chronic obstructive pulmonary disease, unspecified; E11.9 Type 2 diabetes mellitus without complications; E78.5 Hyperlipidemia, unspecified; G47.33 Obstructive sleep apnea (adult) (pediatric); Z99.81 Dependence on supplemental oxygen; Z87.891 Personal history of nicotine dependence; E66.9 Obesity, unspecified; Z68.35 Body mass index [BMI] 35.0-35.9, adult; Z79.82 Long term (current) use of aspirin; Z79.01 Long term (current) use of anticoagulants; Z79.51 Long term (current) use of inhaled steroids; Z79.899 Other long term (current) drug therapy
CPT/HCPCS: D7240 ×9; 36415; 80048; 82948; 85014; 85018; 93005; A9270; J0330; J1100; J2405; J2704; J3010; J7120

== ENCOUNTER 2021-10-19 14:45 | Outpatient (RCR) | payer OTHER, SELFPAY | END 2021-10-22 13:51 | disposition home or self-care (01) | LOC: ANHCPREHAB 14:45 | PROVIDERS: PCP Student in an Organized Health Care Education/Training Program; Visit Provider Student in an Organized Health Care Education/Training Program | DX: J43.9 Emphysema, unspecified (principal) | CPT/HCPCS: 93798; G0239 ==

== ENCOUNTER 2022-09-19 10:12 | Inpatient (IN) | payer OTHER, MEDICAID, SELFPAY ==
[2022-09-19] VITALS (41 sets, daily range): BP systolic 90–123; BP diastolic 45–75; PULSE 77–112; RESP 16–29; TEMP 37–39.2; O2SAT 92–100; BMI 33.8
--- NOTE | ~2022-09-19 | US_ITS ---
Renal-Bladder ultrasound Clinical History: Acute kidney injury Technique: Real-time sonographic imaging of the kidneys and urinary bladder was performed. Findings: The right kidney measures 10.7 cm in length and the left kidney measures 11.0 cm. There is no hydronephrosis or renal calculus identified. Renal cortical echogenicity is within normal limits. No solid renal mass lesion is identified. Left renal cysts noted. The urinary bladder is moderately distended at the time of this exam. No intraluminal echoes are iden tified. No abnormal wall thickening is seen. Impression: Unremarkable ultrasound of the kidneys and urinary bladder. Reviewed, dictated and finalized at location M. Impression: Unremarkable ultrasound of the kidneys and urinary bladder.
--- NOTE | ~2022-09-19 | XR_ITS ---
XR chest 2V DATE: 09/19/2022 12:15 INDICATION: Shortness of breath TECHNIQUE: AP and lateral views COMPARISON: 06/06/2020 portable AP chest at 2237 hours FINDINGS: Cardiomegaly. There is pulmonary vascular redistribution which may indicate mild pulmonary venous hypertension. No pulmonary infiltrate or consolidation, pleural effusion or pulmonary vascular congestion or pneumo thorax. Suggestion of a fracture of the lateral aspect of the right sixth rib. Diffuse idiopathic skeletal hyperostosis of the thoracolumbar spine. IMPRESSION: Cardiomegaly, pulmonary vascular redistribution which may indicate mild pulmonary venous hypertension Aortic atherosclerosis Suspected fracture of the lateral right sixth rib Diffuse idiopathic skeletal hyperostosis of the thoracolumbar spine Reviewed, dictated and finalized at location A.
--- NOTE | 2022-09-19 10:16 | ECG_ITS ---
Measurements Intervals [place] Rate: 116 P: DE: 0 QRS: 10 QRSD: 94 T: 31 QT: 316 QTc: 440 Interpretive Statements ATRIAL FIBRILLATION WITH RAPID VENTRICULAR RESPONSE ST DEPRESSION, CONSIDER SUBENDOCARDIAL INJURY [0.1+ mV ST DEPRESSION] ABNORMAL ECG COMPARED TO ECG 01/07/2021 11:23:16 NO SIGNIFICANT CHANGES Electronically Signed On 09-19-2022 10:43:04 CDT by Maurice Garcia M.D.
[2022-09-19 12:15] LABS: Basophils Percent Auto 0.2 % (0.2-1.2); Hematocrit 21.2 % (42.0-52.0); Immature Granulocyte Absolute 0.04 K/mm3 (0.00-0.031); Immature Granulocyte Percent A 0.4 % (0-0.5); Lymphocytes Absolute Auto 0.67 K/mm3 (0.9-3.2); Lymphocytes Percent Auto 6.7 % (18.3-44.2); Mean Corpuscular HGB Conc 30.2 g/dl (32-36); Mean Corpuscular Hemoglobin 29.5 pg (26-34); Mean Corpuscular Volume 97.7 fl (80-100); Mean Platelet Volume 9.8 fl (7.4-10.4); Monocytes Absolute Auto 0.9 K/mm3 (0.1-0.6); Monocytes Percent Auto 8.6 % (2.6-8.5); Neutrophils Absolute Auto 8.4 K/mm3 (1.3-6.7); Neutrophils Percent Auto 84.1 % (45.5-73.1); Platelet Count Result 169 k/mm3 (150-375); Red Blood Count 2.17 M/mm3 (4.6-6.20)
[2022-09-19 12:17] LABS: Hemoglobin 6.4 g/dL (14.0-18.0)
[2022-09-19 12:26] LABS: Alanine Aminotransferase 33 U/L (6-50); Albumin Level 3.3 g/dL (3.5-5.1); Alkaline Phosphatase 68 U/L (38-126); Anion Gap 6 mmol/L (8-16); Aspartate Amino Transferase 45 U/L (17-59); Blood Urea Nitrogen 37 mg/dL (9-20); Calcium 8.1 mg/dL (8.4-10.2); Carbon Dioxide 22 mmol/L (22-30); Chloride 106 mmol/L (98-107); Estimated CRCL calculation 32 ml/min; Estimated Glomerular Filt Rate 33; Glucose 190 mg/dL (65-110); INR 2.3; Partial Thromboplastin Time 36.1 SECONDS (22.3-36.8); Potassium 4.2 mmol/L (3.4-5.0); Prothrombin Time 26.6 Seconds (11.1-14.7); Sodium 134 mmol/L (137-145)
[2022-09-19] MEDS: dilTIAZem HCl INJ 25 MG/5 ML VIAL 10 MG IV PUSH (12:26)
[2022-09-19 12:40] LABS: NT Pro B Type Natriuretic Pept 4410 pg/mL (19.9-100); Troponin I 0.664 ng/mL (0.000-0.034)
[2022-09-19] MEDS: SODIUM CHLORIDE 0.9% IV 250 ML 30 ML IV CONT (13:54)
[2022-09-19] MEDS: TUBING, BLOOD PLUM PUMP TUBING 1 EACH XX ×2 (13:55→17:01)
--- NOTE | 2022-09-19 13:59 | ED.SOB ---
HPI - SOB/Dyspnea General Chief Complaint: Shortness of Breath/Dyspnea Stated Complaint: diff breathing Time Seen by Provider: 09/19/22 11:38 History of Present Illness HPI Narrative: Patient is a 77-year-old male who presents ER with shortness of breath. Worsening over the last couple days. Patient's daughter reports that he is more pale than typical. No chest pain or chest pressure. Patient reports dyspnea is worse with exertion but is now present at rest. No syncope. Patient also reports that he has some pain to his right perez. He struck it the other day has become bruised. It is not red or hot. He is concerned it could be infection however. Patient reports he did not fall when he suffered this injury has no other bruises or injuries to his chest wall or abdomen. Patient also found to be in A-fib on arrival that is rapid. Reports he takes his medications daily. He is on Eliquis. 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. Related Data Home Medications Medication Instructions Recorded Confirmed aspirin 81 mg tablet,delayed 81 mg PO DAILY 03/12/19 09/19/22 release chlorthalidone 25 mg tablet 25 mg PO DAILY 03/12/19 09/19/22 apixaban 5 mg tablet (Eliquis) 5 mg PO Q12H 06/07/20 09/19/22 metoprolol succinate 25 mg 25 mg PO Q12H 06/07/20 09/19/22 tablet,extended release 24 hr albuterol sulfate 90 mcg/actuation 2 puff inhalation QID PRN 01/01/21 09/19/22 aerosol inhaler Shortness Of Breath Or Wheezing atorvastatin 40 mg tablet 40 mg PO 01/01/21 09/19/22 cholecalciferol (vitamin D3) 50 50 mcg PO DAILY 01/01/21 09/19/22 mcg (2,000 unit) tablet semaglutide 1 mg/dose (4 mg/3 mL) 1 mg subcut WEEKLY 01/01/21 09/19/22 subcutaneous pen injector (Ozempic) fluorometholone 0.1 % eye 1 drp LEFT EYE DAILY 10/19/21 09/19/22 drops,suspension fluticasone propionate 50 2 spray intranasal DAILY 10/19/21 09/19/22 mcg/actuation nasal spray,suspension nitroglycerin 0.4 mg sublingual 0.4 mg sublingual Q5-15M PRN Chest 10/19/21 09/19/22 tablet (Nitrostat) Pain umeclidinium 62.5 mcg-vilanterol 1 inh inhalation DAILY 10/19/21 09/19/22 25 mcg/actuation powdr for inhalation (Anoro Ellipta) acetaminophen 500 mg tablet 500 mg PO Q4H PRN Pain 09/19/22 09/19/22 acyclovir 400 mg tablet 400 mg PO Q12H 09/19/22 09/19/22 blood sugar diagnostic (Contour 09/19/22 09/19/22 Next Test Strips) crisaborole 2 % topical ointment 1 applic topical DAILY PRN Bruising 09/19/22 09/19/22 (Eucrisa) furosemide 20 mg tablet See Rx Instructions .Route .COMPLEX 09/19/22 09/19/22 lancets (Microlet Lancet) 09/19/22 09/19/22 lisinopril 20 mg tablet 20 mg PO DAILY 09/19/22 09/19/22 potassium chloride 20 mEq 20 meq PO DAILY 09/19/22 09/19/22 tablet,extended release saliva stimulant comb. no.7 1 ea PO HS 09/19/22 09/19/22 (Biotene Oralbalance (glycerin) mucosal gel) sodium chloride, sodium 1 ea DAILY 09/19/22 09/19/22 bicarb-nasal rinse squeeze bottle with packet (Neilmed Sinus Rinse Complete with packet) Allergies Allergy/AdvReac Type Severity Reaction Status Date / Time Sulfa (Sulfonamide Allergy Intermediate Rash Verified 09/19/22 16:14 Antibiotics) latex AdvReac Unknown SKIN Verified 09/19/22 11:09 IRRITATION Review of Systems Review of Systems: All systems reviewed & are unremarkable except as noted in HPI and below Constitutional: Constitutional: Denies chills, Reports fatigue and Denies fever(s) ENT: Denies nasal congestion and Denies sore throat Cardiovascular: Cardiovascular: Denies chest pain, Denies rapid heart rate and Denies radiating jaw, neck or arm pain Respiratory: Respiratory: Denies cough, Reports dyspnea and Denies wheezing Gastrointestinal: Gastrointestinal: Denies abdominal pain, Denies diarrhea, Denies nausea and Denies vomiting Musculoskeletal: Musculoskeletal: Denies back pain, Denies arthralgias and Denies joint swelling Integumentary/Breasts: Comments: Bruising
--- NOTE | 2022-09-19 15:56 | ADMGEN ---
This patient, Shon Bradley, was admitted to IMU Room 203-01. Patient/family oriented to hospital policies and general routines including ID bracelet, bed and alarms, visiting hours, pain management, procedures, bathroom and other care routines, personal items, smoking policy, room service/diet, and visiting hours. Information on how to activate the Rapid Response Team has been discussed. Patient/Family are encouraged to report perceived risks to care and to ask questions if they do not understand what they are told or what they should do.
--- NOTE | 2022-09-19 16:29 | ECG_ITS ---
Measurements Intervals [place] Rate: 82 P: MA: 0 QRS: 44 QRSD: 102 T: 4 QT: 354 QTc: 414 Interpretive Statements ATRIAL FIBRILLATION LOW QRS VOLTAGE IN EXTREMITY LEADS [QRS DEFLECTION < 0.5 mV IN LIMB LEADS] MILD ST DEPRESSION [0.05+ mV ST DEPRESSION] COMPARED TO ECG 09/19/2022 10:18:38 NO LONGER IN RAPID VENTRICULAR RESPONSE Electronically Signed On 09-20-2022 13:25:46 CDT by Kirstie Greene M.D.
[2022-09-19 16:32] LABS: Glucose Point of Care 177 mg/dl (65-105)
[2022-09-19] MEDS: SODIUM CHLORIDE 0.9% IV 250 ML 50 ML (17:01)
[2022-09-19] MEDS: ACETAMINOPHEN 325 MG TABLET 650 MG PO (19:24)
[2022-09-19 20:56] LABS: Lactic Acid Reflex 2.2 mmol/L (0.7-2.0)
--- NOTE | 2022-09-19 21:32 | PM.IMHP ---
H&P: HPI History of Present Illness Date/Time: 09/19/22 20:00 Chief Complaint: Shortness of breath. Narrative: This is a very pleasant 77-year-old male with paroxysmal atrial fibrillation on chronic anticoagulation, aortic stenosis, heart failure with preserved ejection fraction, coronary artery disease with history of stents, hypertension, hyperlipidemia, and obstructive sleep apnea on CPAP, and chronic obstructive pulmonary disease who presented to the emergency department via EMS from home for evaluation of shortness of breath. The patient provides the following history. He reports increasing dyspnea on lesser and lesser exertion for the past week and the last several days he has been experiencing intermittent episodes of mid to left anterior chest discomfort associated with shortness of breath. Additionally he reports a low-grade fever for several days, up to about 100? F, and he is concerned that he may have an infection on his right leg as he tripped on a piece of exercise equipment last week, sustained a skin tear on the right perez, and the area has become red, swollen, and painful. Blood pressure was 99/53 on arrival to the ED. Since admission to the floor he has spiked a temperature to 102.6? F. initial workup was significant for a WBC count of 10.0, hemoglobin 6.4, hematocrit 21.2%, BUN 37, creatinine 2.00, lactic acid 2.2, troponin 0.664, proBNP 4410. Chest x-ray showed cardiomegaly with formal vascular redistribution and suspected fracture of the lateral right 6th rib. EKG showed atrial fibrillation with RVR and ST depressions, consider subendocardial injury though it does not appear significantly changed from prior EKG tracings. With further questioning he does admit to noticing darker stools recently though cannot say how long that has been going on. Rectal exam per ED physician showed dark stools which were reportedly Hemoccult-positive. He has been transfused 2 units of packed red blood cells and he seems to be resting comfortably at the time my evaluation. He has no current complaints and specifically denies feelings of chest discomfort and shortness of breath at this time. He is feeling a bit better as his temperature has started to normalize. Review of Systems Review of Systems: Twelve systems were reviewed and are negative except for as per HPI. [facility] Past Medical History Medical History Aortic stenosis Atrial fibrillation Chronic anticoagulation Chronic obstructive pulmonary disease Coronary artery disease Heart failure with preserved ejection fraction Hyperlipidemia Hypertension Kidney stones Obstructive sleep apnea on CPAP Restless leg syndrome Type 2 diabetes mellitus Surgical History Surgical History History of cardiac catheterization History of corneal transplant History of coronary artery stent placement History of right inguinal hernia repair History of tonsillectomy Family History Family History Sibling Family history of cardiovascular disease Family history of Alzheimer's disease Father Family history of cardiovascular disease, Onset Age: 89 Social History Social History (Updated 09/20/22 @ 13:25 by Katya Lebron PA-C) Social History: Surrogate medical decision maker: Shelbi Marcus, damion Code status: Full code. Smoking packs per day: 2 Smoking cigarettes per day: 40.0 Years smoked: 35 Smoking pack-years: 70.00 Smoking status: Former smoker Tobacco type: cigarettes Second hand tobacco smoke exposure: No Smoking end date: 12/04/19 Alcohol intake: former Substance use: never Substance use type: does not use Lack of Transportation: No Lack of Food: Never True Current Housing: I Have Housing Concerned About Future Housing: No Difficulty Paying Gas/Electric Bills: No Di
[2022-09-19 22:15] LABS: Hematocrit 24.4 % (42.0-52.0); Hemoglobin 7.8 g/dL (14.0-18.0)
[2022-09-19 22:29] LABS: CRP 8.4 mg/dL (<1.0)
[2022-09-19] MEDS: CEFEPIME 1 GM/NS 50 ML 1 GM/50 ML BAG IVPB (22:31)
[2022-09-19 22:40] LABS: Creatine Kinase 304 U/L (55-170); Magnesium 2.1 mg/dL (1.6-2.3); Phosphorus 3.2 mg/dL (2.5-4.5)
[2022-09-19] MEDS: FUROSEMIDE INJ 40 MG/4 ML VIAL 20 MG IV PUSH (22:48)
[2022-09-19 22:56] LABS: Complement C3 87 mg/dL (88-165)
[2022-09-19] MEDS: METOPROLOL SUCCINATE EXT REL 25 MG TABCR PO (23:02)
[2022-09-19] MEDS: LATANOPROST 0.005% OP SOLN 2.5 ML BTL 1 DROP LEFT EYE (23:03)
[2022-09-19] MEDS: metroNIDAZOLE 500 MG/ISO 100ML 500 MG/100 ML BAG 100 MG IVPB (23:04)
[2022-09-19 23:07] LABS: Erythrocyte Sedimentation Rate 129 mm/hr (0-20)
[2022-09-19 23:18] LABS: Hemoglobin A1C 4.7 % (<5.7)
[2022-09-19 23:44] LABS: Reflex Lactic Acid Yes or No Add Lactic
[2022-09-20] VITALS (21 sets, daily range): BP systolic 98–119; BP diastolic 54–67; PULSE 65–103; RESP 18–22; TEMP 36.2–38.6; O2SAT 97–100
--- NOTE | 2022-09-20 | ECHO_ITS ---
Patient Info Name: Shon Bradley Age: 77 years : 1945 Gender: Male Ht: 67 in Wt: 216 lbs BSA: 2.19 m2 HR: 70 bpm BP: 110 / 58 mmHg Heart Rhythm: Atrial Fibrillation Technical Quality: Fair Exam Date: 09/20/2022 8:07 AM Exam Location: [facility] Patient Status: Outpatient Admit Date: 09/19/2022 Staff Ordering Physician: Katya Lebron PA-C Oceanography Teacher: Radha Parker RDCS Attending Provider: Sami Manzo MD Referring Physician: Bernardino ANAND; Exam Type: CA echo doppler color flow Study Info Indications - nstemi, afib, cad, htn Complete two-dimensional, color flow and Doppler transthoracic echocardiogram is performed. Summary 1. Complete two-dimensional, color flow and Doppler transthoracic echocardiogram is performed. 2. Left ventricular chamber dimension is normal. 3. Left ventricular systolic function is normal, estimated at 65-70%. 4. There is moderately increased left ventricular wall thickness. 5. Right ventricular systolic function is normal. 6. Left atrial chamber dimension is severely enlarged. 7. Right atrial chamber dimension is mildly enlarged. 8. There is severe aortic valve calcification. 9. There is severe aortic valve stenosis with a peak velocity of 414 cm/s, mean gradient of 40 mmHg, and aortic valve area of 0.7 cm2. 10. There is mild aortic valve regurgitation. 11. There is mild mitral valve regurgitation. 12. There is mild tricuspid valve regurgitation. Left Ventricle Left ventricular chamber dimension is normal. Left ventricular systolic function is normal, estimated at 65-70%. There is moderately increased left ventricular wall thickness. Right Ventricle Right ventricular chamber dimension is normal. Right ventricular systolic function is normal. Left Atria Left atrial chamber dimension is severely enlarged. Right Atria Right atrial chamber dimension is mildly enlarged. Atrial Septum Intact interatrial septum visualized by color flow imaging. Aortic Valve The aortic valve is trileaflet. There is severe aortic valve stenosis with a peak velocity of 414 cm/s, mean gradient of 40 mmHg, and aortic valve area of 0.7 cm2. There is mild aortic valve regurgitation. There is severe aortic valve calcification. Pulmonic Valve The pulmonic valve is not well visualized. Mitral Valve The mitral valve has thickened leaflets. There is mild mitral valve regurgitation. Tricuspid Valve There is mild tricuspid valve regurgitation. Pericardium/Pleural There is trivial pericardial effusion. Inferior Vena Cava Dilated inferior vena cava with <50% collapse upon inspiration consistent with elevated right atrial pressure, 15 mmHg. Aorta The aortic root size at the sinus of Valsalva is normal. Left Ventricular Outflow Tract Name Value Normal LVOT 2D LVOT Diameter 2.1 cm LVOT Doppler LVOT Peak Gradient 3 mmHg LVOT Mean Gradient 2 mmHg LVOT VTI 18 cm LVOT VTI/AV VTI Ratio 0.2 LVOT Stroke Volume 66 ml LVOT CO 5.1 l/min LVOT CI
[2022-09-20 01:21] LABS: Lactic Acid 1.1 mmol/L (0.7-2.0)
[2022-09-20 02:40] LABS: Appearance Urine Clear (Clear); Bacteria Urine None Seen /hpf; Bilirubin Urine Negative (Negative); Blood Urine 3+ (Negative); Color Urine Yellow (Yellow); Glucose Urine UA Negative (Negative); Ketones Urine Negative (Negative); Leukocyte Esterase Ur Negative LEU/UL (Negative); Nitrate Urine Negative (Negative); Protein Urine 1+ mg/dL (Negative); RBC Urine 21-50 /hpf (0-2); Specific Grav Ur 1.013 (1.001-1.035); Squamous Epithelial Cell Urine None seen /hpf (Few); Urobilinogen Urine 0.2 mg/dL (<2.0); WBC Urine 0-5 /hpf
[2022-09-20 03:12] LABS: Creatinine Urine 92.6 mg/dL; Total Protein Urine Random 34 mg/dL; Ur Ttl Prot Creatinine Ratio 0.37 mg/mg (0-0.20)
[2022-09-20 03:41] LABS: Add Urine Microscopic? YES; Potassium Urine Random 44.8 meq/L; Sodium Urine Random 27 meq/L
[2022-09-20] MEDS: ACETAMINOPHEN 325 MG TABLET 650 MG PO ×2 (03:43→16:07)
[2022-09-20 04:18] LABS: Eosinophil Urine None Seen % (None Seen); Urine Eos QC 2nd Tech Confirmed
[2022-09-20 05:11] LABS: Estimated CRCL calculation 34 ml/min; Estimated Glomerular Filt Rate 35
[2022-09-20] MEDS: metroNIDAZOLE 500 MG/ISO 100ML 500 MG/100 ML BAG 100 MG IVPB ×3 (06:14→22:08)
[2022-09-20] MEDS: FLUTICASONE PROPIONATE 0.05% NA SPR 16 GM BTL (*BKC) 2 SPRAY NASAL (09:02)
[2022-09-20] MEDS: METOPROLOL SUCCINATE EXT REL 25 MG TABCR PO ×2 (09:02→20:23)
[2022-09-20] MEDS: FLUOROMETHOLONE 0.1% OP SUSP 5 ML BTL 1 DROP EACH EYE (09:03)
[2022-09-20 09:04] LABS: Glucose Point of Care 126 mg/dl (65-105)
[2022-09-20] MEDS: CEFEPIME 1 GM/NS 50 ML 1 GM/50 ML BAG IVPB ×2 (09:05→20:23)
[2022-09-20] MEDS: EUCERIN CREAM 120 GM JAR 1 APPLIC TOPICAL (09:09)
--- NOTE | 2022-09-20 09:21 | PM.IMPN ---
Progress Note: A&P Assessment and Plan (1) Symptomatic anemia: Code(s): D64.9 - Anemia, unspecified Status: Acute Assessment and Plan: Patient presents with complaints of shortness of breath and found to have a hemoglobin of 6.4. No recent hemoglobin values to have a clear baseline. Definitely had acute blood loss to the right lower extremity from a trauma. He is also guaiac positive on presentation. He was on Eliquis on admission. No NSAID use. He is transfuse 2 units of packed red blood cells. Hemoglobin improved to 7.8. Will order serial H&H. GI has been consulted. Add Protonix. (2) Occult GI bleeding: Code(s): R19.5 - Other fecal abnormalities Status: Acute Assessment and Plan: As above. Concern for gastritis, duodenitis, peptic ulcer disease or esophagitis. (3) Non-ST elevation myocardial infarction (NSTEMI): Code(s): I21.4 - Non-ST elevation (NSTEMI) myocardial infarction Status: Acute Assessment and Plan: Troponin was elevated on admission and has climbed to 14.6 last night. EKG showed AFib with RVR rate of [address] depression in the anterior-lateral leads. EKG states no change from a 2020 EKG although on my review, the ST depression is more prominent in the current EKG. Echocardiogram actually has been completed showing EF of 65-70% with bi-atrial enlargement and severe aortic stenosis (SAYRA 0.7cm2). Patient is unaware that he has aortic stenosis. 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 Cardiology has been consulted. (4) Cellulitis of right leg: Code(s): L03.115 - Cellulitis of right lower limb Status: Acute Assessment and Plan: Patient developed fever during transfusion. Temperature climbed to 102.6. He denied having fevers at home prior to admission. Source could be from the transfusion. He also could be related to cellulitis. Chest x-ray more consistent with pulmonary edema probably from high output failure. UA showed blood but no evidence of acute infection. Blood cultures were collected any was started on broad-spectrum IV antibiotics. (5) Acute kidney injury: Code(s): N17.9 - Acute kidney failure, unspecified Status: Acute Assessment and Plan: Creatinine 2 years ago was 1.3-1.5 range. Unclear if this has worsened over the past 2 years. Creatinine 2.0 on admission and about the same on repeat. He is on ACEI and Lasix on admission. Renal ultrasound shows normal size kidneys. No hydronephrosis. His bladder is moderately distended. Will check a bladder scan. Urine eosinophils are negative. UA shows 3+ blood and 21-50 red cells. He may have been straight cathed. Continue to follow. (6) Sepsis: Code(s): A41.9 - Sepsis, unspecified organism Status: Acute Assessment and Plan: Present on admission with tachycardia and elevated lactic acid with acute kidney injury. As above (7) Atrial fibrillation with RVR: Code(s): I48.91 - Unspecified atrial fibrillation Status: Acute Assessment and Plan: Heart rate better controlled. Metoprolol resumed. He will remain off of Eliquis for the time being. (8) Heart failure with preserved ejection fraction: Code(s): I50.30 - Unspecified diastolic (congestive) heart failure Status: Acute Assessment and Plan: Echo as mentioned above. Suspect pulmonary edema related to high output failure. He may also have heart failure related to his severe aortic stenosis. Cardiology been consulted. (9) Coronary artery disease: Code(s): I25.10 - Atherosclerotic heart disease of [place] coronary artery without angina pectoris Status: Acute Assessment and Plan: As above. Will resume some of his home medications. (10) Obstructive sleep apnea on CPAP: Code(s): G47.33 - Obstructive sleep apnea (adult) (pediatric) Status: Acute Assessment and Plan: Stable. Continue BiPAP a
[2022-09-20] MEDS: UMECLIDINIUM/VILANTEROL 62.5-25 MCG ELLIPTA 1 PUFF INHALATION (09:42)
[2022-09-20] MEDS: PANTOPRAZOLE SODIUM IV 40 MG VIAL IV PUSH ×2 (10:31→20:22)
[2022-09-20 10:34] LABS: Alanine Aminotransferase 31 U/L (6-50); Albumin Level 2.8 g/dL (3.5-5.1); Alkaline Phosphatase 56 U/L (38-126); Anion Gap 6 mmol/L (8-16); Aspartate Amino Transferase 58 U/L (17-59); Bilirubin,Total 1.2 mg/dL (0.2-1.3); Blood Urea Nitrogen 35 mg/dL (9-20); Calcium 7.7 mg/dL (8.4-10.2); Carbon Dioxide 21 mmol/L (22-30); Chloride 103 mmol/L (98-107); Estimated CRCL calculation 34 ml/min; Estimated Glomerular Filt Rate 35; Glucose 131 mg/dL (65-110); Magnesium 1.9 mg/dL (1.6-2.3); Sodium 130 mmol/L (137-145)
[2022-09-20 10:38] LABS: Basophils Percent Auto 0.2 % (0.2-1.2); Eosinophils Percent Auto 0.1 % (0-4.4); Hematocrit 23.7 % (42.0-52.0); Hemoglobin 7.5 g/dL (14.0-18.0); Immature Granulocyte Absolute 0.04 K/mm3 (0.00-0.031); Immature Granulocyte Percent A 0.4 % (0-0.5); Lymphocytes Absolute Auto 0.85 K/mm3 (0.9-3.2); Lymphocytes Percent Auto 8.4 % (18.3-44.2); Mean Corpuscular HGB Conc 31.6 g/dl (32-36); Mean Corpuscular Hemoglobin 29.6 pg (26-34); Mean Corpuscular Volume 93.7 fl (80-100); Mean Platelet Volume 9.3 fl (7.4-10.4); Monocytes Absolute Auto 0.6 K/mm3 (0.1-0.6); Monocytes Percent Auto 6.2 % (2.6-8.5); Neutrophils Absolute Auto 8.6 K/mm3 (1.3-6.7); Neutrophils Percent Auto 84.7 % (45.5-73.1); Platelet Count Result 141 k/mm3 (150-375); Red Blood Count 2.53 M/mm3 (4.6-6.20); Red Cell Distribution Width 16.9 % (11.5-14.5); White Blood Count 10.1 K/mm3 (4.5-10.0)
[2022-09-20 11:07] LABS: Thyroid Stimulating Hormone Reflex 0.382 uIU/mL (0.465-4.68)
--- NOTE | 2022-09-20 11:32 | PM.CNCAR ---
Assessment and Plan Assessment and plan (1) Non-ST elevation myocardial infarction (NSTEMI): Code(s): I21.4 - Non-ST elevation (NSTEMI) myocardial infarction Status: Acute Assessment and Plan: Initial troponin of 0.664, with peak of 14.6. Initial EKG on presentation showed atrial fibrillation with RVR with ST depressions in the inferolateral leads. Repeat EKG with rate controlled atrial fibrillation with improvement in ST depressions. In the setting of symptomatic acute anemia requiring blood transfusions and occult GI bleeding. Likely demand ischemia from acute anemia, atrial fibrillation with RVR, however, given the degree of troponin elevation, cannot rule out an acute coronary syndrome. He has no chest pain and his shortness of breath has improved after blood transfusions and improvement in Hgb level, which is reassuring. His echocardiogram showed normal LVEF without appreciable wall motion abnormalities, which is also reassuring. At this time, given acute anemia and concern for GI bleed, will treat conservatively. Cannot use ASA at this time until he stabilizes more from a bleeding standpoint, but recommend to restart ASA 81mg once daily when okay from a bleeding standpoint. Continue beta madai, continue statin. (2) Symptomatic anemia: Code(s): D64.9 - Anemia, unspecified Status: Acute Assessment and Plan: Hgb of 6.4. Given blood transfusions with improvement in his symptoms. GI has been consulted. Management as per primary team. (3) Atrial fibrillation with RVR: Code(s): I48.91 - Unspecified atrial fibrillation Status: Acute Assessment and Plan: Currently rate controlled. Continue beta madai. Hold Eliquis for now given GI bleed. (4) Aortic stenosis: Code(s): I35.0 - Nonrheumatic aortic (valve) stenosis Status: Acute Assessment and Plan: His echocardiogram from 2019 per report showed mild aortic stenosis. TTE 09/20/2022 this admission shows LVEF 65-70%, severe aortic calcification with severe aortic valve stenosis with peak velocity of 414 cm/s, mean gradient of 40mmHg, and aortic valve area of 0.7cm2. With his acute anemia, this is likely causing a high output state. The aortic transvalvular gradients can be significantly elevated secondary to a high-output cardiac state, making his aortic stenosis appear worse than it truly is. He will need a repeat echocardiogram to reassess aortic valve gradients once his Hgb level normalizes. (5) Acute kidney injury: Code(s): N17.9 - Acute kidney failure, unspecified Status: Acute Assessment and Plan: Likely from acute anemia. Avoid nephrotoxins, monitor renal function closely. (6) Sepsis: Code(s): A41.9 - Sepsis, unspecified organism Status: Acute Assessment and Plan: Management as per primary team. (7) Hypertension: Code(s): I10 - Essential (primary) hypertension Status: Acute Assessment and Plan: Stable. (8) Hyperlipidemia: Code(s): E78.5 - Hyperlipidemia, unspecified Status: Acute Assessment and Plan: Continue statin. Plan Patient to follow-up with his primary Wildlife Policy Professional, Dr. Win after hospital discharge. History of Present Illness History of Present Illness Consult date/time: 09/20/22 11:32 Requesting physician: Katya Lebron PA-C Consult reason: atrial fibrillation and Other (Elevated troponin ) Reason For Visit: Anemia/Occult GI Bleed/Elevated Troponin Narrative: We are consulted for atrial fibrillation with RVR, elevated troponins. This is a 77-year-old male with atrial fibrillation on Eliquis, mild aortic stenosis per TTE in 2020, heart failure with preserved ejection fraction, coronary artery disease with stents, hypertension, hyperlipidemia, PETER, and COPD who presented to [facility] for evaluation of shortness of breath. No chest pain. Has been having dyspnea on exertion for the past week. Reported low-gr
[2022-09-20 11:50] LABS: Glucose Point of Care 126 mg/dl (65-105)
[2022-09-20 12:20] LABS: Free T4 Free Thyroxine Reflex 1.41 ng/dL (0.78-2.19)
[2022-09-20 13:29] LABS: Total Triiodothyronine (T3) 0.58 NG/ML (0.97-1.69)
[2022-09-20 14:28] LABS: Hematocrit 25.4 % (42.0-52.0)
--- NOTE | 2022-09-20 14:28 | WPDGICN ---
Assessment and Plan Assessment and plan (1) Symptomatic anemia: Code(s): D64.9 - Anemia, unspecified Status: Acute Assessment and Plan: this probably aggravated NSTEMI, feeling better after transfusion on iv protonix also noted large ecchymosis in Rt leg and he was on blood thinner- on hold for now given recent nstemi I would prefer to wait another day or so before doing EGD probably does not need another colonoscopy but will reassess (2) Occult GI bleeding: Code(s): R19.5 - Other fecal abnormalities Status: Acute Assessment and Plan: egd in 1-2 days once downtrending troponin iv protonix (3) Sepsis: Code(s): A41.9 - Sepsis, unspecified organism Status: Acute Assessment and Plan: on admission probably cellulitis on iv abx (4) Non-ST elevation myocardial infarction (NSTEMI): Code(s): I21.4 - Non-ST elevation (NSTEMI) myocardial infarction Status: Acute Assessment and Plan: cardiology on board (5) Cellulitis of right leg: Code(s): L03.115 - Cellulitis of right lower limb Status: Acute Assessment and Plan: on treatment (6) Acute kidney injury: Code(s): N17.9 - Acute kidney failure, unspecified Status: Acute (7) Atrial fibrillation with RVR: Code(s): I48.91 - Unspecified atrial fibrillation Status: Acute (8) Chronic anticoagulation: Code(s): Z79.01 - shelter (current) use of anticoagulants Status: Acute Assessment and Plan: on hold now GI Consult Note Consult date/time: 09/20/22 14:28 Reason for consult: acute anemia, melena HPI: Shon Bradley is a 77 year old male with history of paroxysmal atrial fibrillation on chronic anticoagulation, aortic stenosis, heart failure with preserved ejection fraction, coronary artery disease with history of stents, hypertension, DM, and obstructive sleep apnea on CPAP who came to the emergency department via EMS from home for evaluation of progressive shortness of breath for last week. He also noted low grade fever T 100 F and was concerned about possible cellulitis on his right leg after he tripped over last week and noted darker skin but not more swollen and red. He had fever up to 102.6? F. WBC count of 10.0, hemoglobin 6.4, hematocrit 21.2%, BUN 37, creatinine 2.00, lactic acid 2.2, troponin 0.664 but then up to 11 -->14, proBNP 4410. Chest x-ray showed cardiomegaly with formal vascular redistribution and suspected fracture of the lateral right 6th rib. Admitted to floor, given prbc and now feeling better. Evaluated by cardiology, denies chest pain now and SOB improved after transfusion. He noted dark stools last 2 days, no abdominal pain or nausea. Had colonoscopy 3 years ago, only had small polyps removed. Review of Systems Constitutional: Constitutional: Reports chills and Reports fatigue Eyes: Eyes: Denies blurry vision ENT: Reports Normal hearing present Cardiovascular: Cardiovascular: Denies chest pain Respiratory: Respiratory: Reports dyspnea on exertion Gastrointestinal: Gastrointestinal: Denies abdominal pain Genitourinary: Genitourinary: Denies hematuria Musculoskeletal: Comments: leg pain Integumentary/Breasts: Skin/Breast: Reports rash (Rt leg pain) Neurologic: Denies Abnormal speech present Psychiatric: Psychiatric: Denies anxiety [facility] Past Medical History Medical History Aortic stenosis Atrial fibrillation Chronic anticoagulation Chronic obstructive pulmonary disease Coronary artery disease Heart failure with preserved ejection fraction Hyperlipidemia Hypertension Kidney stones Obstructive sleep apnea on CPAP Restless leg syndrome Type 2 diabetes mellitus Surgical History Surgical History History of cardiac catheterization History of corneal transplant History of coronary art
[2022-09-20 16:18] LABS: Glucose Point of Care 131 mg/dl (65-105)
[2022-09-20 20:00] LABS: Hemoglobin 7.4 g/dL (14.0-18.0)
[2022-09-20 20:01] LABS: Influenza A QL RT-PCR Negative (Negative); Influenza B QL RT-PCR Negative (Negative); RSV RNA, RT-PCR Negative (Negative); SARS-CoV-2 RNA PCR Negative (Negative)
[2022-09-20 20:05] LABS: Glucose Point of Care 179 mg/dl (65-105)
[2022-09-20] MEDS: LATANOPROST 0.005% OP SOLN 2.5 ML BTL 1 DROP LEFT EYE (20:23)
[2022-09-20] MEDS: ATORVASTATIN 40 MG TABLET PO (20:23)
[2022-09-21] VITALS (17 sets, daily range): BP systolic 93–115; BP diastolic 50–65; PULSE 55–103; RESP 16–22; TEMP 35.7–37.6; O2SAT 97–100
[2022-09-21 04:50] LABS: Eosinophils Percent Auto 0.2 % (0-4.4); Hematocrit 23.3 % (42.0-52.0); Hemoglobin 7.1 g/dL (14.0-18.0); Immature Granulocyte Absolute 0.15 K/mm3 (0.00-0.031); Immature Granulocyte Percent A 1.4 % (0-0.5); Lymphocytes Absolute Auto 1.01 K/mm3 (0.9-3.2); Lymphocytes Percent Auto 9.4 % (18.3-44.2); Mean Corpuscular HGB Conc 30.5 g/dl (32-36); Mean Corpuscular Hemoglobin 28.4 pg (26-34); Mean Corpuscular Volume 93.2 fl (80-100); Mean Platelet Volume 9.9 fl (7.4-10.4); Monocytes Absolute Auto 0.7 K/mm3 (0.1-0.6); Monocytes Percent Auto 6.2 % (2.6-8.5); Neutrophils Absolute Auto 8.9 K/mm3 (1.3-6.7); Neutrophils Percent Auto 82.8 % (45.5-73.1); Platelet Count Result 143 k/mm3 (150-375); Red Cell Distribution Width 16.5 % (11.5-14.5); White Blood Count 10.7 K/mm3 (4.5-10.0)
[2022-09-21 05:04] LABS: Albumin Level 2.7 g/dL (3.5-5.1); Anion Gap 6 mmol/L (8-16); Blood Urea Nitrogen 40 mg/dL (9-20); Calcium 7.5 mg/dL (8.4-10.2); Carbon Dioxide 23 mmol/L (22-30); Chloride 103 mmol/L (98-107); Estimated CRCL calculation 34 ml/min; Estimated Glomerular Filt Rate 35; Glucose 130 mg/dL (65-110); Magnesium 2.1 mg/dL (1.6-2.3); Phosphorus 4.2 mg/dL (2.5-4.5); Potassium 4.1 mmol/L (3.4-5.0); Sodium 132 mmol/L (137-145)
[2022-09-21] MEDS: metroNIDAZOLE 500 MG/ISO 100ML 500 MG/100 ML BAG 100 MG IVPB ×3 (05:35→21:42)
[2022-09-21] MEDS: UMECLIDINIUM/VILANTEROL 62.5-25 MCG ELLIPTA 1 PUFF INHALATION (07:55)
[2022-09-21] MEDS: FLUOROMETHOLONE 0.1% OP SUSP 5 ML BTL 1 DROP EACH EYE (09:40)
[2022-09-21] MEDS: CEFEPIME 1 GM/NS 50 ML 1 GM/50 ML BAG IVPB ×2 (09:40→22:47)
[2022-09-21] MEDS: FLUTICASONE PROPIONATE 0.05% NA SPR 16 GM BTL (*BKC) 2 SPRAY NASAL (09:41)
[2022-09-21] MEDS: METOPROLOL SUCCINATE EXT REL 25 MG TABCR PO ×2 (09:41→21:42)
[2022-09-21] MEDS: PANTOPRAZOLE SODIUM IV 40 MG VIAL IV PUSH ×2 (09:43→21:29)
[2022-09-21 11:26] LABS: Glucose Point of Care 155 mg/dl (65-105)
[2022-09-21] MEDS: HYDROcodone/acetaminophen (*CRX) 5-325 MG TABLET 1 TAB PO ×3 (12:33→21:28)
--- NOTE | 2022-09-21 12:42 | PC.NURSE ---
vanc was late when pt came up to unit. just stared the vanc approx 1240 that was due at 1100. called pharmacy and they informed me that they will have to readjust time on vanc trough. will monitor if pharmacy has to start next vanc due to a later time as well.
--- NOTE | 2022-09-21 13:30 | WPDGIPROGNO ---
Progress Note: A&P Assessment and Plan (1) Symptomatic anemia: Code(s): D64.9 - Anemia, unspecified Status: Acute Assessment and Plan: will proceed with egd tomorrow to assess if upper gi source protonix for now (2) Occult GI bleeding: Code(s): R19.5 - Other fecal abnormalities Status: Acute Assessment and Plan: had + FOBT with some dark stools egd in am (3) Sepsis: Code(s): A41.9 - Sepsis, unspecified organism Status: Acute Assessment and Plan: on antibiotic (4) Cellulitis of right leg: Code(s): L03.115 - Cellulitis of right lower limb Status: Acute (5) Acute kidney injury: Code(s): N17.9 - Acute kidney failure, unspecified Status: Acute (6) Non-ST elevation myocardial infarction (NSTEMI): Code(s): I21.4 - Non-ST elevation (NSTEMI) myocardial infarction Status: Acute Assessment and Plan: by cardiology, medical management (7) Chronic anticoagulation: Code(s): Z79.01 - technician terminal and repeater (current) use of anticoagulants Status: Acute Assessment and Plan: on hold Subjective Date/time seen: 09/21/22 13:30 Interval history: doing ok, no chest pain, no signs of overt gib Review of Systems Review of Systems: All systems reviewed & are unremarkable except as noted in HPI and below Exam Const: General: comfortable and no acute distress HENMT: Face/Nose/Sinus: Normal nares present Eyes: General: appearance normal, both eyes and all related structures Neck: Neck: supple Resp: Effort & Inspection: normal respiratory effort Cardio: Rhythm: abnormal rhythm regularly irregular GI: GI Palp: Yes Soft to palpation, No Tenderness to palpation present (GI) and No Guarding due to palpation present (GI) Auscultation: normal bowel sounds Skin: Other: rash in Rt leg with ecchymosis and redness Neuro: Speech: normal speech Extrem: Other: Rt leg redness Psych: Affect: normal affect Objective Data Vital Signs Vital Signs: Vital Signs - 24 hr 09/20/22 14:00 09/20/22 16:07 09/20/22 16:00 Temperature 101.5 F H 101.5 F H Pulse Rate 101 H 94 Respiratory Rate 18 Blood Pressure 113/59 L Pulse Oximetry 100 Oxygen Delivery Oxygen Flow Rate 09/20/22 17:07 09/20/22 16:00 09/20/22 16:00 Temperature 100.6 F H Pulse Rate 89 Respiratory Rate Blood Pressure Pulse Oximetry 100 Oxygen Delivery Room Air Oxygen Flow Rate 09/20/22 18:00 09/20/22 20:00 09/20/22 20:23 Temperature 98.2 F Pulse Rate 93 69 74 Respiratory Rate 20 Blood Pressure 98/54 L Pulse Oximetry 100 Oxygen Delivery Oxygen Flow Rate 09/20/22 20:00 09/20/22 20:00 09/20/22 21:57 Temperature Pulse Rate 68 68 86 Respiratory Rate 20 Blood Pressure Pulse Oximetry 100 Oxygen Delivery CPAP Oxygen Flow Rate 4 09/20/22 23:12 09/21/22 00:00 09/21/22 00:00 Temperature 98.6 F Pulse Rate 65 81 81 Respiratory Rate 20 20 Blood Pressure 119/67 Pulse Oximetry 99 99 Oxygen Delivery CPAP Oxygen Flow Rate 09/21/22 04:00 09/21/22 02:00 09/21/22 04:00 Temperature 97.8 F Pulse Rate 80 88 93 Respiratory Rate 22 H Blood Pressure 115/61 Pulse Oximetry 99 Oxygen Delivery Oxygen Flow Rate 09/21/22 04:00 09/21/22 06:00 09/21/22 07:55 Temperature Pulse Rate 93 79 99 Respiratory Rate 22 H 20 Blood Pressure Pulse Oximetry 99 Oxygen Delivery CPAP Oxygen Flow Rate 4 09/21/22 08:00 09/21/22 08:55 09/21/22 08:00 Temperature 98.8 F Pulse Rate 102 H 102 H Respiratory Rate 22 H Blood Pressure 115/64 Pulse Oximetry 100 100 Oxygen Delivery Oxygen Flow Rate 09/21/22 09:41 09/21/22 08:00 09/21/22 12:00 Temperature 96.3 F L Pulse Rate 103 H 89 Respiratory Rate 20 Blood Pressure 109/59 L Pulse Oximetry 100 99 Oxygen Delivery CPAP Oxygen Flow Rate 4 Intake/Output Intake/Outp
--- NOTE | 2022-09-21 13:50 | PM.IMPN ---
Progress Note: A&P Assessment and Plan (1) Symptomatic anemia: Code(s): D64.9 - Anemia, unspecified Status: Acute Assessment and Plan: transfuse as needed hgb noted (2) Occult GI bleeding: Code(s): R19.5 - Other fecal abnormalities Status: Acute Assessment and Plan: plan for egd at some point Concern for gastritis, duodenitis, peptic ulcer disease or esophagitis. (3) Non-ST elevation myocardial infarction (NSTEMI): Code(s): I21.4 - Non-ST elevation (NSTEMI) myocardial infarction Status: Acute Assessment and Plan: Cardiology consult noted (4) Cellulitis of right leg: Code(s): L03.115 - Cellulitis of right lower limb Status: Acute Assessment and Plan: vanc metronidazole cefepime pain control (5) Acute kidney injury: Code(s): N17.9 - Acute kidney failure, unspecified Status: Acute Assessment and Plan: monitor kidney function and electrolytesContinue to follow. (6) Sepsis: Code(s): A41.9 - Sepsis, unspecified organism Status: Acute Assessment and Plan: Present on admission (7) Atrial fibrillation with RVR: Code(s): I48.91 - Unspecified atrial fibrillation Status: Acute Assessment and Plan: Heart rate better controlled. Metoprolol resumed. He will remain off of Eliquis for the time being. (8) Heart failure with preserved ejection fraction: Code(s): I50.30 - Unspecified diastolic (congestive) heart failure Status: Acute Assessment and Plan: Echo as mentioned above. Suspect pulmonary edema related to high output failure. He may also have heart failure related to his severe aortic stenosis. Cardiology been consulted. (9) Coronary artery disease: Code(s): I25.10 - Atherosclerotic heart disease of [place] coronary artery without angina pectoris Status: Acute Assessment and Plan: As above. Will resume some of his home medications. (10) Obstructive sleep apnea on CPAP: Code(s): G47.33 - Obstructive sleep apnea (adult) (pediatric) Status: Acute Assessment and Plan: Stable. Continue BiPAP at night and with naps. Continue O2 bleed in at 4.5 L. Elevate HOB (11) Hypertension: Code(s): I10 - Essential (primary) hypertension Status: Acute Assessment and Plan: Blood pressure stable. (12) Hyperlipidemia: Code(s): E78.5 - Hyperlipidemia, unspecified Status: Acute Assessment and Plan: Liver enzymes are normal. Resume atorvastatin. (13) Type 2 diabetes mellitus: Code(s): E11.9 - Type 2 diabetes mellitus without complications Status: Acute Assessment and Plan: monitor bs (14) Aortic stenosis: Code(s): I35.0 - Nonrheumatic aortic (valve) stenosis Status: Acute Assessment and Plan: As above. Sever by current echo. Patient seem to be unaware of this findings despite following with Cardiology. Cards consult. Subjective Date/time seen: 09/21/22 13:50 Interval history: labs noted hgb low no cp, no sob complaining of pain in right leg (no noticeable new injury and no new trauma) Exam Narrative: Tm 102.6 98.8 104/57 87 22 100% ra Gen - NARD lying semi recumbent in bed with BiPAP in place. Chest -mild bibasilar inspiratory crackles. CV -irregularly irregular. S1-S2. Telemetry showing PVCs and atrial fibrillation with controlled rate Abd - Soft, NT/ND, Positive BS Ext -mild right lower extremity pedal edema. Psych - Nml mood and affect Skin -significant ecchymosis noted in the right lower extremity mostly involving the perez and calf. Tender to touch. Small dry black eschar noted mid right perez with surrounding pink erythema that is blanchable. Objective Data Vital Signs Vital Signs: Vital Signs - 24 hr 09/20/22 14:00 09/20/22 16:07 09/20/22 16:00 Temperature 101.5 F H 101.5 F H
[2022-09-21] MEDS: SODIUM CHLORIDE 0.9% IV 250 ML 30 ML IV CONT (16:40)
[2022-09-21 16:45] LABS: Glucose Point of Care 158 mg/dl (65-105)
[2022-09-21 21:26] LABS: Glucose Point of Care 114 mg/dl (65-105)
[2022-09-21] MEDS: LATANOPROST 0.005% OP SOLN 2.5 ML BTL 1 DROP LEFT EYE (21:27)
[2022-09-21] MEDS: ATORVASTATIN 40 MG TABLET PO (21:28)
[2022-09-21] MEDS: WATER FOR IRRIGATION, STERILE 1,000 ML BOTTLE 1000 ML (22:24)
[2022-09-22] VITALS (12 sets, daily range): BP systolic 90–138; BP diastolic 58–68; PULSE 69–80; RESP 17–23; TEMP 36.1–36.7; O2SAT 96–100
[2022-09-22] MEDS: HYDROcodone/acetaminophen (*CRX) 5-325 MG TABLET 1 TAB PO ×3 (03:32→14:32)
[2022-09-22] MEDS: metroNIDAZOLE 500 MG/ISO 100ML 500 MG/100 ML BAG 100 MG IVPB (05:09)
[2022-09-22 06:46] LABS: Estimated CRCL calculation 41 ml/min; Estimated Glomerular Filt Rate 42
[2022-09-22 07:43] LABS: Glucose Point of Care 105 mg/dl (65-105)
[2022-09-22] MEDS: CEFEPIME 1 GM/NS 50 ML 1 GM/50 ML BAG IVPB (08:49)
[2022-09-22] MEDS: FLUTICASONE PROPIONATE 0.05% NA SPR 16 GM BTL (*BKC) 2 SPRAY NASAL (08:49)
[2022-09-22] MEDS: FLUOROMETHOLONE 0.1% OP SUSP 5 ML BTL 1 DROP EACH EYE (08:50)
[2022-09-22] MEDS: METOPROLOL SUCCINATE EXT REL 25 MG TABCR PO (08:50)
[2022-09-22] MEDS: PANTOPRAZOLE SODIUM IV 40 MG VIAL IV PUSH ×2 (08:50→21:50)
[2022-09-22] MEDS: EUCERIN CREAM 120 GM JAR 1 APPLIC TOPICAL (08:55)
[2022-09-22] MEDS: UMECLIDINIUM/VILANTEROL 62.5-25 MCG ELLIPTA 1 PUFF INHALATION (09:02)
[2022-09-22 11:55] LABS: Glucose Point of Care 112 mg/dl (65-105)
[2022-09-22] MEDS: LACTATED RINGERS 1,000 ML 150 ML IV CONT (12:17)
--- NOTE | 2022-09-22 12:38 | WPDANESEPPF ---
Anes - Initial Pre Proc Eval Procedure: Operation Date: 09/22/22 12:30 Proposed Procedures p Esophagogastroduodenoscopy - Anthony Tabares MD Date/Time: 09/22/22 12:38 Surgeon: Ji Manzo MD Pre Op Diagnosis: Anemia/Occult GI Bleed/Elevated Troponin Patient Data Age: 77 Gender: M Height: 1.7 m Weight: 101.2 kg Last Vital Signs Temp 96.9 F L 09/22/22 12:13 Pulse 76 09/22/22 12:13 Resp 20 09/22/22 12:13 BP 138/65 09/22/22 12:13 Pulse Ox 99 09/22/22 12:13 O2 Del Method Room Air 09/22/22 12:13 O2 Flow Rate 3 09/22/22 04:49 FiO2 32 09/22/22 04:49 Allergies Allergy/AdvReac Type Severity Reaction Status Date / Time Sulfa (Sulfonamide Allergy Intermediate Rash Verified 09/19/22 16:14 Antibiotics) latex AdvReac Unknown SKIN Verified 09/19/22 11:09 IRRITATION Home Medications Medication Instructions Recorded Confirmed Type aspirin 81 mg tablet,delayed 81 mg PO DAILY 03/12/19 09/19/22 History release chlorthalidone 25 mg tablet 25 mg PO DAILY 03/12/19 09/19/22 History latanoprost 0.005 % eye drops See Rx Instructions .Route 03/22/19 09/19/22 Rx .COMPLEX #2.5 mL apixaban 5 mg tablet (Eliquis) 5 mg PO Q12H 06/07/20 09/19/22 History metoprolol succinate 25 mg 25 mg PO Q12H 06/07/20 09/19/22 History tablet,extended release 24 hr albuterol sulfate 90 mcg/actuation 2 puff inhalation QID PRN 01/01/21 09/19/22 History aerosol inhaler Shortness Of Breath Or Wheezing atorvastatin 40 mg tablet 40 mg PO HS 01/01/21 09/19/22 History cholecalciferol (vitamin D3) 50 50 mcg PO DAILY 01/01/21 09/19/22 History mcg (2,000 unit) tablet semaglutide 1 mg/dose (4 mg/3 mL) 1 mg subcut WEEKLY 01/01/21 09/19/22 History subcutaneous pen injector (Ozempic) fluorometholone 0.1 % eye 1 drp LEFT EYE DAILY 10/19/21 09/19/22 History drops,suspension fluticasone propionate 50 2 spray intranasal DAILY 10/19/21 09/19/22 History mcg/actuation nasal spray,suspension nitroglycerin 0.4 mg sublingual 0.4 mg sublingual Q5-15M PRN Chest 10/19/21 09/19/22 History tablet (Nitrostat) Pain umeclidinium 62.5 mcg-vilanterol 1 inh inhalation DAILY 10/19/21 09/19/22 History 25 mcg/actuation powdr for inhalation (Anoro Ellipta) acetaminophen 500 mg tablet 500 mg PO Q4H PRN Pain 09/19/22 09/19/22 History acyclovir 400 mg tablet 400 mg PO Q12H 09/19/22 09/19/22 History blood sugar diagnostic (Contour 09/19/22 09/19/22 History Next Test Strips) crisaborole 2 % topical ointment 1 applic topical DAILY PRN Bruising 09/19/22 09/19/22 History (Eucrisa) furosemide 20 mg tablet See Rx Instructions .Route .COMPLEX 09/19/22 09/19/22 History lancets (Microlet Lancet) 09/19/22 09/19/22 History lisinopril 20 mg tablet 20 mg PO DAILY 09/19/22 09/19/22 History potassium chloride 20 mEq 20 meq PO DAILY 09/19/22 09/19/22 History tablet,extended release saliva stimulant comb. no.7 1 ea PO HS 09/19/22 09/19/22 History (Biotene Oralbalance (glycerin) mucosal gel) sodium chloride, sodium 1 ea DAILY 09/19/22 09/19/22 History bicarb-nasal rinse squeeze bottle with packet (Neilmed Sinus Rinse Complete with packet) Laboratory Tests 09/19/22 09/21/22 09/21/22 12:45 16:24 21:24 Creatinine Estim Creat Clear Calc Estimated GFR POC Capillary Glucose 158 H mg/dl 114 H mg/dl (65-105) (65-105) Blood Type O Positive Antibody Screen Negative Crossmatch See Detail 09/22/22 09/22/22 09/22/22 05:41 07:36 11:49 Creatinine 1.60 H mg/dL (0.7-1.3) Estim Creat Clear Calc 41 ml/min Estimated GFR 42 L (59 - ) POC Capillary Glucose 105 mg/dl 112 H mg/dl (65-105) (65-105) Blood Type Antibody Screen Crossmatch Patient hx anesthesia problems: none Family hx anesthesia problems: none Results Rev
[2022-09-22 13:09] LABS: Glucose Point of Care 104 mg/dl (65-105)
[2022-09-22] MEDS: AMPICILLIN SULB 3 GM/NS 100 ML 3 GM/100 ML VIAL IVPB ×2 (14:08→18:42)
[2022-09-22 14:18] LABS: Hematocrit 26.9 % (42.0-52.0); Hemoglobin 7.9 g/dL (14.0-18.0); Mean Corpuscular HGB Conc 29.4 g/dl (32-36); Mean Corpuscular Hemoglobin 27.9 pg (26-34); Mean Corpuscular Volume 95.1 fl (80-100); Mean Platelet Volume 10.7 fl (7.4-10.4); Platelet Count Result 166 k/mm3 (150-375); Red Blood Count 2.83 M/mm3 (4.6-6.20); Red Cell Distribution Width 16.9 % (11.5-14.5); White Blood Count 11.3 K/mm3 (4.5-10.0)
--- NOTE | 2022-09-22 14:53 | PM.IMPN ---
Progress Note: A&P Assessment and Plan (1) Symptomatic anemia: Code(s): D64.9 - Anemia, unspecified Status: Acute Assessment and Plan: transfuse as needed hgb noted (2) Occult GI bleeding: Code(s): R19.5 - Other fecal abnormalities Status: Acute Assessment and Plan: plan for egd at some point Concern for gastritis, duodenitis, peptic ulcer disease or esophagitis. (3) Non-ST elevation myocardial infarction (NSTEMI): Code(s): I21.4 - Non-ST elevation (NSTEMI) myocardial infarction Status: Acute Assessment and Plan: Cardiology consult noted (4) Cellulitis of right leg: Code(s): L03.115 - Cellulitis of right lower limb Status: Acute Assessment and Plan: vanc metronidazole cefepime pain control (5) Acute kidney injury: Code(s): N17.9 - Acute kidney failure, unspecified Status: Acute Assessment and Plan: monitor kidney function and electrolytesContinue to follow. (6) Sepsis: Code(s): A41.9 - Sepsis, unspecified organism Status: Acute Assessment and Plan: Present on admission (7) Atrial fibrillation with RVR: Code(s): I48.91 - Unspecified atrial fibrillation Status: Acute Assessment and Plan: Heart rate better controlled. Metoprolol resumed. He will remain off of Eliquis for the time being. (8) Heart failure with preserved ejection fraction: Code(s): I50.30 - Unspecified diastolic (congestive) heart failure Status: Acute Assessment and Plan: Echo as mentioned above. Suspect pulmonary edema related to high output failure. He may also have heart failure related to his severe aortic stenosis. Cardiology been consulted. (9) Coronary artery disease: Code(s): I25.10 - Atherosclerotic heart disease of [place] coronary artery without angina pectoris Status: Acute Assessment and Plan: As above. Will resume some of his home medications. (10) Obstructive sleep apnea on CPAP: Code(s): G47.33 - Obstructive sleep apnea (adult) (pediatric) Status: Acute Assessment and Plan: Stable. Continue BiPAP at night and with naps. Continue O2 bleed in at 4.5 L. Elevate HOB (11) Hypertension: Code(s): I10 - Essential (primary) hypertension Status: Acute Assessment and Plan: Blood pressure stable. (12) Hyperlipidemia: Code(s): E78.5 - Hyperlipidemia, unspecified Status: Acute Assessment and Plan: Liver enzymes are normal. Resume atorvastatin. (13) Type 2 diabetes mellitus: Code(s): E11.9 - Type 2 diabetes mellitus without complications Status: Acute Assessment and Plan: monitor bs (14) Aortic stenosis: Code(s): I35.0 - Nonrheumatic aortic (valve) stenosis Status: Acute Assessment and Plan: As above. Sever by current echo. Patient seem to be unaware of this findings despite following with Cardiology. Cards consult. Subjective Date/time seen: 09/22/22 14:53 Interval history: Right leg looks improved. Cultures noted Exam Narrative: Tm 102.6 98.8 104/57 87 22 100% ra Gen - NARD lying semi recumbent in bed with BiPAP in place. Chest -mild bibasilar inspiratory crackles. CV -irregularly irregular. S1-S2. Telemetry showing PVCs and atrial fibrillation with controlled rate Abd - Soft, NT/ND, Positive BS Ext -mild right lower extremity pedal edema. Psych - Nml mood and affect Skin -significant ecchymosis noted in the right lower extremity mostly involving the perez and calf. Tender to touch. Small dry black eschar noted mid right perez with surrounding pink erythema that is blanchable. Objective Data Vital Signs Vital Signs: Vital Signs - 24 hr 09/21/22 16:51 09/21/22 17:06 09/21/22 18:06 Temperature 97.1 F L 97.5 F L 97.6 F Pulse Rate 79 66 68 Respiratory Rate 22 H 20 20 Blood Pressure 109
--- NOTE | 2022-09-22 16:29 | PHAR ---
HOME MED: OZEMPIC 4 MG/3ML, INJECT 1 MG INTO THE SKIN WEEKLY. VERIFIED BY PHARMACY.
[2022-09-22 16:39] LABS: Glucose Point of Care 153 mg/dl (65-105)
[2022-09-22] MEDS: INJECTOR SUB-Q (17:45)
[2022-09-22] MEDS: SEMAGLUTIDE SUB-Q (17:45)
[2022-09-22] MEDS: polyethylene glycoL 3350 238 GM BOTTLE PO (18:42)
[2022-09-22 19:06] LABS: Complement Total CH50 >60 U/mL (31-60)
[2022-09-22 20:42] LABS: Glucose Point of Care 166 mg/dl (65-105)
[2022-09-22] MEDS: ATORVASTATIN 40 MG TABLET PO (21:49)
[2022-09-22] MEDS: LATANOPROST 0.005% OP SOLN 2.5 ML BTL 1 DROP LEFT EYE (21:49)
[2022-09-22] MEDS: ACETAMINOPHEN 325 MG TABLET 650 MG PO (22:40)
--- NOTE | 2022-09-22 23:36 | PC.NURSE ---
Patients BP was 106/58. Notified SECRETARIAL TEACHER Maryann. Skipped eveing dose of metoprolol.
[2022-09-23] VITALS (12 sets, daily range): BP systolic 91–157; BP diastolic 48–114; PULSE 61–102; RESP 13–20; TEMP 36.4–38.1; O2SAT 98–100
[2022-09-23] MEDS: AMPICILLIN SULB 3 GM/NS 100 ML 3 GM/100 ML VIAL IVPB ×4 (00:17→17:05)
[2022-09-23] MEDS: HYDROcodone/acetaminophen (*CRX) 5-325 MG TABLET 1 TAB PO ×3 (00:29→18:49)
[2022-09-23 06:04] LABS: Basophils Percent Auto 0.4 % (0.2-1.2); Eosinophils Absolute Auto 0.1 K/mm3 (0-0.3); Eosinophils Percent Auto 1.2 % (0-4.4); Hematocrit 26.8 % (42.0-52.0); Hemoglobin 8.5 g/dL (14.0-18.0); Immature Granulocyte Absolute 0.04 K/mm3 (0.00-0.031); Immature Granulocyte Percent A 0.4 % (0-0.5); Lymphocytes Absolute Auto 1.27 K/mm3 (0.9-3.2); Lymphocytes Percent Auto 12.2 % (18.3-44.2); Mean Corpuscular HGB Conc 31.7 g/dl (32-36); Mean Corpuscular Hemoglobin 29.4 pg (26-34); Mean Corpuscular Volume 92.7 fl (80-100); Monocytes Absolute Auto 0.9 K/mm3 (0.1-0.6); Monocytes Percent Auto 8.5 % (2.6-8.5); Neutrophils Absolute Auto 8.1 K/mm3 (1.3-6.7); Neutrophils Percent Auto 77.3 % (45.5-73.1); Platelet Count Result 183 k/mm3 (150-375); Red Blood Count 2.89 M/mm3 (4.6-6.20); Red Cell Distribution Width 16.7 % (11.5-14.5); White Blood Count 10.4 K/mm3 (4.5-10.0)
[2022-09-23 06:22] LABS: Anion Gap 6 mmol/L (8-16); Blood Urea Nitrogen 23 mg/dL (9-20); Calcium 7.7 mg/dL (8.4-10.2); Carbon Dioxide 24 mmol/L (22-30); Chloride 107 mmol/L (98-107); Estimated CRCL calculation 43 ml/min; Estimated Glomerular Filt Rate 46; Glucose 97 mg/dL (65-110); Potassium 3.7 mmol/L (3.4-5.0); Sodium 137 mmol/L (137-145)
[2022-09-23] MEDS: polyethylene glycoL 3350 238 GM BOTTLE PO (07:09)
[2022-09-23] MEDS: UMECLIDINIUM/VILANTEROL 62.5-25 MCG ELLIPTA 1 PUFF INHALATION (07:38)
[2022-09-23 07:44] LABS: Glucose Point of Care 139 mg/dl (65-105)
[2022-09-23] MEDS: METOPROLOL SUCCINATE EXT REL 25 MG TABCR PO ×2 (08:02→20:22)
[2022-09-23] MEDS: FLUOROMETHOLONE 0.1% OP SUSP 5 ML BTL 1 DROP EACH EYE (08:03)
[2022-09-23] MEDS: EUCERIN CREAM 120 GM JAR 1 APPLIC TOPICAL (08:03)
[2022-09-23] MEDS: FLUTICASONE PROPIONATE 0.05% NA SPR 16 GM BTL (*BKC) 2 SPRAY NASAL (08:03)
[2022-09-23] MEDS: PANTOPRAZOLE SODIUM IV 40 MG VIAL IV PUSH (08:03)
[2022-09-23 10:29] LABS: Anti Streptolysin O Screen 102 IU/mL (<200)
--- NOTE | 2022-09-23 11:29 | PM.IMPN ---
Progress Note: A&P Assessment and Plan (1) Symptomatic anemia: Code(s): D64.9 - Anemia, unspecified Status: Acute Assessment and Plan: transfuse as needed hgb noted (2) Occult GI bleeding: Code(s): R19.5 - Other fecal abnormalities Status: Acute Assessment and Plan: EGD noted. Plan for colonoscopy today (3) Non-ST elevation myocardial infarction (NSTEMI): Code(s): I21.4 - Non-ST elevation (NSTEMI) myocardial infarction Status: Acute Assessment and Plan: Cardiology consult noted No chest pain (4) Cellulitis of right leg: Code(s): L03.115 - Cellulitis of right lower limb Status: Acute Assessment and Plan: IV Unasyn pain control (5) Acute kidney injury: Code(s): N17.9 - Acute kidney failure, unspecified Status: Acute Assessment and Plan: monitor kidney function and electrolytesContinue to follow. (6) Sepsis: Code(s): A41.9 - Sepsis, unspecified organism Status: Acute Assessment and Plan: Present on admission + blood cultures. Continue IV antibiotic (7) Atrial fibrillation with RVR: Code(s): I48.91 - Unspecified atrial fibrillation Status: Acute Assessment and Plan: Heart rate better controlled. Metoprolol resumed. He will remain off of Eliquis for the time being. (8) Heart failure with preserved ejection fraction: Code(s): I50.30 - Unspecified diastolic (congestive) heart failure Status: Acute Assessment and Plan: Echo as mentioned above. Suspect pulmonary edema related to high output failure. He may also have heart failure related to his severe aortic stenosis. Cardiology been consulted. (9) Coronary artery disease: Code(s): I25.10 - Atherosclerotic heart disease of [place] coronary artery without angina pectoris Status: Acute Assessment and Plan: As above. Will resume some of his home medications. (10) Obstructive sleep apnea on CPAP: Code(s): G47.33 - Obstructive sleep apnea (adult) (pediatric) Status: Acute Assessment and Plan: Stable. Continue BiPAP at night and with naps. Continue O2 bleed in at 4.5 L. Elevate HOB (11) Hypertension: Code(s): I10 - Essential (primary) hypertension Status: Acute Assessment and Plan: Blood pressure stable. (12) Hyperlipidemia: Code(s): E78.5 - Hyperlipidemia, unspecified Status: Acute Assessment and Plan: Liver enzymes are normal. Resume atorvastatin. (13) Type 2 diabetes mellitus: Code(s): E11.9 - Type 2 diabetes mellitus without complications Status: Acute Assessment and Plan: monitor bs (14) Aortic stenosis: Code(s): I35.0 - Nonrheumatic aortic (valve) stenosis Status: Acute Assessment and Plan: As above. Sever by current echo. Patient seem to be unaware of this findings despite following with Cardiology. Cards consult. Subjective Date/time seen: 09/23/22 11:29 Interval history: No new complaints Exam Narrative: Gen - NARD lying semi recumbent in bed with BiPAP in place. Chest -mild bibasilar inspiratory crackles. CV -irregularly irregular. S1-S2. Telemetry showing PVCs and atrial fibrillation with controlled rate Abd - Soft, NT/ND, Positive BS Ext -mild right lower extremity pedal edema. Psych - Nml mood and affect Skin -significant ecchymosis noted in the right lower extremity mostly involving the perez and calf. Tender to touch. Small dry black eschar noted mid right perez with surrounding pink erythema that is blanchable. Objective Data Vital Signs Vital Signs: Vital Signs - 24 hr 09/22/22 12:13 09/22/22 12:55 09/22/22 13:05 Temperature 96.9 F L Pulse Rate 76 77 80 Respiratory Rate 20 20 23 H Blood Pressure 138/65 95/60 L 107/68 Pulse Oximetry 99 100 98 Oxygen Delivery Room Air Nasal Cannula Room Air
[2022-09-23 11:33] LABS: Glucose Point of Care 201 mg/dl (65-105)
[2022-09-23] MEDS: LACTATED RINGERS 1,000 ML 150 ML IV CONT (11:55)
[2022-09-23 11:58] LABS: Glucose Point of Care 157 mg/dl (65-105)
--- NOTE | 2022-09-23 12:22 | WPDANESEPPF ---
Anes - Initial Pre Proc Eval Procedure: Operation Date: 09/22/22 12:30 Proposed Procedures p Esophagogastroduodenoscopy - Anthony Tabares MD Operation Date: 09/23/22 13:30 Proposed Procedures p Colonoscopy - Anthony Tabares MD Date/Time: 09/23/22 12:22 Surgeon: Ji Manzo MD Pre Op Diagnosis: Anemia/Occult GI Bleed/Elevated Troponin Patient Data Age: 77 Gender: M Height: 1.7 m Weight: 100.953 kg Last Vital Signs Temp 97.5 F L 09/23/22 05:26 Pulse 65 09/23/22 11:58 Resp 20 09/23/22 11:58 BP 111/69 09/23/22 11:58 Pulse Ox 99 09/23/22 11:58 O2 Del Method Room Air 09/23/22 11:58 O2 Flow Rate 2 09/22/22 12:55 FiO2 32 09/23/22 08:00 Allergies Allergy/AdvReac Type Severity Reaction Status Date / Time Sulfa (Sulfonamide Allergy Intermediate Rash Verified 09/19/22 16:14 Antibiotics) latex AdvReac Unknown SKIN Verified 09/19/22 11:09 IRRITATION Home Medications Medication Instructions Recorded Confirmed Type aspirin 81 mg tablet,delayed 81 mg PO DAILY 03/12/19 09/19/22 History release chlorthalidone 25 mg tablet 25 mg PO DAILY 03/12/19 09/19/22 History latanoprost 0.005 % eye drops See Rx Instructions .Route 03/22/19 09/19/22 Rx .COMPLEX #2.5 mL apixaban 5 mg tablet (Eliquis) 5 mg PO Q12H 06/07/20 09/19/22 History metoprolol succinate 25 mg 25 mg PO Q12H 06/07/20 09/19/22 History tablet,extended release 24 hr albuterol sulfate 90 mcg/actuation 2 puff inhalation QID PRN 01/01/21 09/19/22 History aerosol inhaler Shortness Of Breath Or Wheezing atorvastatin 40 mg tablet 40 mg PO HS 01/01/21 09/19/22 History cholecalciferol (vitamin D3) 50 50 mcg PO DAILY 01/01/21 09/19/22 History mcg (2,000 unit) tablet semaglutide 1 mg/dose (4 mg/3 mL) 1 mg subcut WEEKLY 01/01/21 09/19/22 History subcutaneous pen injector (Ozempic) fluorometholone 0.1 % eye 1 drp LEFT EYE DAILY 10/19/21 09/19/22 History drops,suspension fluticasone propionate 50 2 spray intranasal DAILY 10/19/21 09/19/22 History mcg/actuation nasal spray,suspension nitroglycerin 0.4 mg sublingual 0.4 mg sublingual Q5-15M PRN Chest 10/19/21 09/19/22 History tablet (Nitrostat) Pain umeclidinium 62.5 mcg-vilanterol 1 inh inhalation DAILY 10/19/21 09/19/22 History 25 mcg/actuation powdr for inhalation (Anoro Ellipta) acetaminophen 500 mg tablet 500 mg PO Q4H PRN Pain 09/19/22 09/19/22 History acyclovir 400 mg tablet 400 mg PO Q12H 09/19/22 09/19/22 History blood sugar diagnostic (Contour 09/19/22 09/19/22 History Next Test Strips) crisaborole 2 % topical ointment 1 applic topical DAILY PRN Bruising 09/19/22 09/19/22 History (Eucrisa) furosemide 20 mg tablet See Rx Instructions .Route .COMPLEX 09/19/22 09/19/22 History lancets (Microlet Lancet) 09/19/22 09/19/22 History lisinopril 20 mg tablet 20 mg PO DAILY 09/19/22 09/19/22 History potassium chloride 20 mEq 20 meq PO DAILY 09/19/22 09/19/22 History tablet,extended release saliva stimulant comb. no.7 1 ea PO HS 09/19/22 09/19/22 History (Biotene Oralbalance (glycerin) mucosal gel) sodium chloride, sodium 1 ea DAILY 09/19/22 09/19/22 History bicarb-nasal rinse squeeze bottle with packet (Neilmed Sinus Rinse Complete with packet) Laboratory Tests 09/19/22 09/20/22 09/22/22 22:08 01:03 05:41 WBC 11.3 H K/mm3 (4.5-10.0) RBC 2.83 L M/mm3 (4.6-6.20) Hgb 7.9 L g/dL (14.0-18.0) Hct 26.9 L % (42.0-52.0) MCV 95.1 fl (80-100) MCH 27.9 pg (26-34) MCHC 29.4 L g/dl (32-36) RDW 16.9 H % (11.5-14.5) Plt Count 166 k/mm3 (150-375) MPV 10.7 H fl (7.4-10.4) Immature Gran % (Auto) Neut % (Auto) Lymph % (Auto) [place] % (Auto) Eos % (Auto) Baso % (Auto) Lymph # (Auto) [place] # (Au
--- NOTE | 2022-09-23 12:51 | PCPTNOTE ---
On 09/23/22, the student, [Amina Rico], provided care and completed [facility] documentation on this patient. I have reviewed the student's documentation and agree with the findings.
--- NOTE | 2022-09-23 13:15 | PC.NURSE ---
This patient, Shon Bradley, was received from on 09/23/22 at 1315. Patient/family oriented to unit policies and routines
[2022-09-23 16:43] LABS: Glucose Point of Care 155 mg/dl (65-105)
[2022-09-23 19:58] LABS: Glucose Point of Care 168 mg/dl (65-105)
[2022-09-23] MEDS: ACETAMINOPHEN 325 MG TABLET 650 MG PO (20:18)
[2022-09-23] MEDS: LATANOPROST 0.005% OP SOLN 2.5 ML BTL 1 DROP LEFT EYE (20:21)
[2022-09-23] MEDS: ATORVASTATIN 40 MG TABLET PO (20:22)
[2022-09-24] VITALS (8 sets, daily range): BP systolic 110–119; BP diastolic 63–79; PULSE 63–105; RESP 14–18; TEMP 36.1–37.2; O2SAT 99–100
[2022-09-24] MEDS: AMPICILLIN SULB 3 GM/NS 100 ML 3 GM/100 ML VIAL IVPB ×5 (00:12→23:47)
[2022-09-24 07:33] LABS: Glucose Point of Care 146 mg/dl (65-105)
[2022-09-24] MEDS: UMECLIDINIUM/VILANTEROL 62.5-25 MCG ELLIPTA 1 PUFF INHALATION (08:17)
[2022-09-24] MEDS: FLUTICASONE PROPIONATE 0.05% NA SPR 16 GM BTL (*BKC) 2 SPRAY NASAL (08:51)
[2022-09-24] MEDS: PANTOPRAZOLE 40 MG TABLET PO (08:51)
[2022-09-24] MEDS: EUCERIN CREAM 120 GM JAR 1 APPLIC TOPICAL (08:52)
[2022-09-24] MEDS: FLUOROMETHOLONE 0.1% OP SUSP 5 ML BTL 1 DROP EACH EYE (08:52)
[2022-09-24] MEDS: METOPROLOL SUCCINATE EXT REL 25 MG TABCR PO ×2 (08:54→20:06)
[2022-09-24] MEDS: HYDROcodone/acetaminophen (*CRX) 5-325 MG TABLET 1 TAB PO ×3 (08:58→21:19)
--- NOTE | 2022-09-24 09:45 | PM.IMPN ---
Progress Note: A&P Assessment and Plan (1) Symptomatic anemia: Code(s): D64.9 - Anemia, unspecified Status: Acute Assessment and Plan: transfuse as needed hgb noted egd / colonoscopy noted (2) Occult GI bleeding: Code(s): R19.5 - Other fecal abnormalities Status: Acute Assessment and Plan: EGD noted. colonoscopy noted (3) Non-ST elevation myocardial infarction (NSTEMI): Code(s): I21.4 - Non-ST elevation (NSTEMI) myocardial infarction Status: Acute Assessment and Plan: Cardiology consult noted No chest pain (4) Cellulitis of right leg: Code(s): L03.115 - Cellulitis of right lower limb Status: Acute Assessment and Plan: IV Unasyn pain control (5) Acute kidney injury: Code(s): N17.9 - Acute kidney failure, unspecified Status: Acute Assessment and Plan: monitor kidney function and electrolytesContinue to follow. (6) Sepsis: Code(s): A41.9 - Sepsis, unspecified organism Status: Acute Assessment and Plan: Present on admission + blood cultures. Continue IV antibiotic (7) Atrial fibrillation with RVR: Code(s): I48.91 - Unspecified atrial fibrillation Status: Acute Assessment and Plan: Heart rate better controlled. Metoprolol resumed. He will remain off of Eliquis for the time being. (8) Heart failure with preserved ejection fraction: Code(s): I50.30 - Unspecified diastolic (congestive) heart failure Status: Acute Assessment and Plan: Echo as mentioned above. Suspect pulmonary edema related to high output failure. He may also have heart failure related to his severe aortic stenosis. Cardiology been consulted. (9) Coronary artery disease: Code(s): I25.10 - Atherosclerotic heart disease of [place] coronary artery without angina pectoris Status: Acute Assessment and Plan: As above. Will resume some of his home medications. (10) Obstructive sleep apnea on CPAP: Code(s): G47.33 - Obstructive sleep apnea (adult) (pediatric) Status: Acute Assessment and Plan: Stable. Continue BiPAP at night and with naps. Continue O2 bleed in at 4.5 L. Elevate HOB (11) Hypertension: Code(s): I10 - Essential (primary) hypertension Status: Acute Assessment and Plan: Blood pressure stable. (12) Hyperlipidemia: Code(s): E78.5 - Hyperlipidemia, unspecified Status: Acute Assessment and Plan: Liver enzymes are normal. Resume atorvastatin. (13) Type 2 diabetes mellitus: Code(s): E11.9 - Type 2 diabetes mellitus without complications Status: Acute Assessment and Plan: monitor bs (14) Aortic stenosis: Code(s): I35.0 - Nonrheumatic aortic (valve) stenosis Status: Acute Assessment and Plan: As above. Sever by current echo. Patient seem to be unaware of this findings despite following with Cardiology. Cards consult. Subjective Date/time seen: 09/24/22 09:45 Interval history: no issues Exam Narrative: Gen - NARD lying semi recumbent in bed with BiPAP in place. Chest -mild bibasilar inspiratory crackles. CV -irregularly irregular. S1-S2. Telemetry showing PVCs and atrial fibrillation with controlled rate Abd - Soft, NT/ND, Positive BS Ext -mild right lower extremity pedal edema. Psych - Nml mood and affect Skin -significant ecchymosis noted in the right lower extremity mostly involving the perez and calf. Tender to touch. Small dry black eschar noted mid right perez with surrounding pink erythema that is blanchable. Objective Data Vital Signs Vital Signs: Vital Signs - 24 hr 09/23/22 11:30 09/23/22 11:58 09/23/22 12:31 Temperature Pulse Rate 65 77 Respiratory Rate 20 19 Blood Pressure 111/69 157/114 H Pulse Oximetry 99 99 Oxygen Delivery Room Air Room Air Room Air Fraction of Inspir
[2022-09-24 11:34] LABS: Glucose Point of Care 160 mg/dl (65-105)
[2022-09-24 16:27] LABS: Glucose Point of Care 151 mg/dl (65-105)
--- NOTE | 2022-09-24 18:07 | PC.NURSE ---
Pt is A&O 6 male who has participated and contributed in plan of care. Pt has reported pain in leg multiple times today, treated with medication and educated on pain management. Pt uses CPAP when sleeping. Pt worked with therapy today. Pt is likely to discharge Monday to [facility]. Will continue to monitor pt.
[2022-09-24] MEDS: ATORVASTATIN 40 MG TABLET PO (20:06)
[2022-09-24] MEDS: LATANOPROST 0.005% OP SOLN 2.5 ML BTL 1 DROP LEFT EYE (20:09)
[2022-09-24 20:38] LABS: Glucose Point of Care 180 mg/dl (65-105)
[2022-09-25] VITALS (9 sets, daily range): BP systolic 101–114; BP diastolic 59–62; PULSE 67–108; RESP 16–20; TEMP 36.6–36.9; O2SAT 97–100
[2022-09-25] MEDS: AMPICILLIN SULB 3 GM/NS 100 ML 3 GM/100 ML VIAL IVPB ×4 (05:53→23:41)
[2022-09-25 07:37] LABS: Glucose Point of Care 124 mg/dl (65-105)
[2022-09-25] MEDS: PANTOPRAZOLE 40 MG TABLET PO (08:02)
[2022-09-25] MEDS: METOPROLOL SUCCINATE EXT REL 25 MG TABCR PO ×2 (08:03→20:27)
[2022-09-25] MEDS: FLUTICASONE PROPIONATE 0.05% NA SPR 16 GM BTL (*BKC) 2 SPRAY NASAL (08:03)
[2022-09-25] MEDS: FLUOROMETHOLONE 0.1% OP SUSP 5 ML BTL 1 DROP EACH EYE (08:03)
[2022-09-25] MEDS: HYDROcodone/acetaminophen (*CRX) 5-325 MG TABLET 1 TAB PO ×2 (08:08→20:26)
[2022-09-25] MEDS: UMECLIDINIUM/VILANTEROL 62.5-25 MCG ELLIPTA 1 PUFF INHALATION (08:39)
[2022-09-25 09:25] LABS: Anion Gap 6 mmol/L (8-16); Blood Urea Nitrogen 19 mg/dL (9-20); Calcium 7.6 mg/dL (8.4-10.2); Carbon Dioxide 25 mmol/L (22-30); Chloride 106 mmol/L (98-107); Estimated CRCL calculation 54 ml/min; Estimated Glomerular Filt Rate 59; Glucose 131 mg/dL (65-110); Sodium 137 mmol/L (137-145)
[2022-09-25 11:30] LABS: Glucose Point of Care 177 mg/dl (65-105)
--- NOTE | 2022-09-25 11:51 | PM.IMPN ---
Progress Note: A&P Assessment and Plan (1) Symptomatic anemia: Code(s): D64.9 - Anemia, unspecified Status: Acute Assessment and Plan: transfuse as needed hgb noted egd / colonoscopy noted (2) Occult GI bleeding: Code(s): R19.5 - Other fecal abnormalities Status: Acute Assessment and Plan: EGD noted. colonoscopy noted (3) Non-ST elevation myocardial infarction (NSTEMI): Code(s): I21.4 - Non-ST elevation (NSTEMI) myocardial infarction Status: Acute Assessment and Plan: Cardiology consult noted No chest pain (4) Cellulitis of right leg: Code(s): L03.115 - Cellulitis of right lower limb Status: Acute Assessment and Plan: IV Unasyn pain control (5) Acute kidney injury: Code(s): N17.9 - Acute kidney failure, unspecified Status: Acute Assessment and Plan: monitor kidney function and electrolytesContinue to follow. (6) Sepsis: Code(s): A41.9 - Sepsis, unspecified organism Status: Acute Assessment and Plan: Present on admission + blood cultures. Continue IV antibiotic (7) Atrial fibrillation with RVR: Code(s): I48.91 - Unspecified atrial fibrillation Status: Acute Assessment and Plan: Heart rate better controlled. Metoprolol resumed. He will remain off of Eliquis for the time being. (8) Heart failure with preserved ejection fraction: Code(s): I50.30 - Unspecified diastolic (congestive) heart failure Status: Acute Assessment and Plan: Echo as mentioned above. Suspect pulmonary edema related to high output failure. He may also have heart failure related to his severe aortic stenosis. Cardiology been consulted. (9) Coronary artery disease: Code(s): I25.10 - Atherosclerotic heart disease of [place] coronary artery without angina pectoris Status: Acute Assessment and Plan: As above. Will resume some of his home medications. (10) Obstructive sleep apnea on CPAP: Code(s): G47.33 - Obstructive sleep apnea (adult) (pediatric) Status: Acute Assessment and Plan: Stable. Continue BiPAP at night and with naps. Continue O2 bleed in at 4.5 L. Elevate HOB (11) Hypertension: Code(s): I10 - Essential (primary) hypertension Status: Acute Assessment and Plan: Blood pressure stable. (12) Hyperlipidemia: Code(s): E78.5 - Hyperlipidemia, unspecified Status: Acute Assessment and Plan: Liver enzymes are normal. Resume atorvastatin. (13) Type 2 diabetes mellitus: Code(s): E11.9 - Type 2 diabetes mellitus without complications Status: Acute Assessment and Plan: monitor bs (14) Aortic stenosis: Code(s): I35.0 - Nonrheumatic aortic (valve) stenosis Status: Acute Assessment and Plan: As above. Sever by current echo. Patient seem to be unaware of this findings despite following with Cardiology. Cards consult. Subjective Date/time seen: 09/25/22 11:51 Interval history: No complaints Exam Narrative: Gen - NARD lying semi recumbent in bed with BiPAP in place. Chest -mild bibasilar inspiratory crackles. CV -irregularly irregular. S1-S2. Telemetry showing PVCs and atrial fibrillation with controlled rate Abd - Soft, NT/ND, Positive BS Ext -mild right lower extremity pedal edema. Psych - Nml mood and affect Skin -significant ecchymosis noted in the right lower extremity mostly involving the perez and calf. Tender to touch. Small dry black eschar noted mid right perez with surrounding pink erythema that is blanchable. Objective Data Vital Signs Vital Signs: Vital Signs - 24 hr 09/24/22 14:00 09/24/22 19:55 09/24/22 20:06 Temperature 96.9 F L Pulse Rate 92 92 81 Respiratory Rate 18 18 Blood Pressure 119/79 Pulse Oximetry 99 99 Oxygen Delivery Room Air Fraction of Inspired Oxygen
--- NOTE | 2022-09-25 13:12 | PC.NURSE ---
Pt is A&O4 male. Pt has reported pain in the right leg. Pt treated with pain medication. Pt does not express any needs at this time. Pt compliant with care. Will continue to monitor pt.
[2022-09-25 16:44] LABS: Glucose Point of Care 133 mg/dl (65-105)
[2022-09-25] MEDS: ATORVASTATIN 40 MG TABLET PO (20:27)
[2022-09-25] MEDS: LATANOPROST 0.005% OP SOLN 2.5 ML BTL 1 DROP LEFT EYE (20:27)
[2022-09-25 21:08] LABS: Glucose Point of Care 161 mg/dl (65-105)
[2022-09-26 05:24] VITALS: BP 122/69; PULSE 76; RESP 16; TEMP 37.4; O2SAT 100
[2022-09-26] MEDS: AMPICILLIN SULB 3 GM/NS 100 ML 3 GM/100 ML VIAL IVPB ×2 (05:41→11:47)
[2022-09-26 07:41] LABS: Glucose Point of Care 139 mg/dl (65-105)
[2022-09-26] MEDS: HYDROcodone/acetaminophen (*CRX) 5-325 MG TABLET 1 TAB PO (08:15)
[2022-09-26] MEDS: PANTOPRAZOLE 40 MG TABLET PO (08:15)
[2022-09-26 08:16] VITALS: PULSE 75
[2022-09-26] MEDS: FLUTICASONE PROPIONATE 0.05% NA SPR 16 GM BTL (*BKC) 2 SPRAY NASAL (08:16)
[2022-09-26] MEDS: METOPROLOL SUCCINATE EXT REL 25 MG TABCR PO (08:16)
[2022-09-26] MEDS: FLUOROMETHOLONE 0.1% OP SUSP 5 ML BTL 1 DROP EACH EYE (08:16)
[2022-09-26 08:18] VITALS: PULSE 75; O2SAT 100
[2022-09-26 08:29] VITALS: PULSE 86; RESP 18; O2SAT 100
[2022-09-26] MEDS: UMECLIDINIUM/VILANTEROL 62.5-25 MCG ELLIPTA 1 PUFF INHALATION (08:36)
[2022-09-26 11:38] LABS: Glucose Point of Care 169 mg/dl (65-105)
--- NOTE | 2022-09-26 11:57 | PM.DS ---
DS: Admitting Diagnosis Discharge Date September 26, 2022 Admitting Diagnosis Anemia GI bleed DS: Discharge Diagnosis Discharge Diagnosis (1) Symptomatic anemia: Code(s): D64.9 - Anemia, unspecified Status: Acute Assessment and Plan: transfuse as needed hgb noted egd / colonoscopy noted (2) Occult GI bleeding: Code(s): R19.5 - Other fecal abnormalities Status: Acute Assessment and Plan: EGD noted. colonoscopy noted (3) Non-ST elevation myocardial infarction (NSTEMI): Code(s): I21.4 - Non-ST elevation (NSTEMI) myocardial infarction Status: Acute Assessment and Plan: Cardiology consult noted No chest pain (4) Cellulitis of right leg: Code(s): L03.115 - Cellulitis of right lower limb Status: Acute Assessment and Plan: IV Unasyn pain control (5) Acute kidney injury: Code(s): N17.9 - Acute kidney failure, unspecified Status: Acute Assessment and Plan: monitor kidney function and electrolytesContinue to follow. (6) Sepsis: Code(s): A41.9 - Sepsis, unspecified organism Status: Acute Assessment and Plan: Present on admission + blood cultures. Continue IV antibiotic (7) Atrial fibrillation with RVR: Code(s): I48.91 - Unspecified atrial fibrillation Status: Acute Assessment and Plan: Heart rate better controlled. Metoprolol resumed. He will remain off of Eliquis for the time being. (8) Heart failure with preserved ejection fraction: Code(s): I50.30 - Unspecified diastolic (congestive) heart failure Status: Acute Assessment and Plan: Echo as mentioned above. Suspect pulmonary edema related to high output failure. He may also have heart failure related to his severe aortic stenosis. Cardiology been consulted. (9) Coronary artery disease: Code(s): I25.10 - Atherosclerotic heart disease of [place] coronary artery without angina pectoris Status: Acute Assessment and Plan: As above. Will resume some of his home medications. (10) Obstructive sleep apnea on CPAP: Code(s): G47.33 - Obstructive sleep apnea (adult) (pediatric) Status: Acute Assessment and Plan: Stable. Continue BiPAP at night and with naps. Continue O2 bleed in at 4.5 L. Elevate HOB (11) Hypertension: Code(s): I10 - Essential (primary) hypertension Status: Acute Assessment and Plan: Blood pressure stable. (12) Hyperlipidemia: Code(s): E78.5 - Hyperlipidemia, unspecified Status: Acute Assessment and Plan: Liver enzymes are normal. Resume atorvastatin. (13) Type 2 diabetes mellitus: Code(s): E11.9 - Type 2 diabetes mellitus without complications Status: Acute Assessment and Plan: monitor bs (14) Aortic stenosis: Code(s): I35.0 - Nonrheumatic aortic (valve) stenosis Status: Acute Assessment and Plan: As above. Sever by current echo. Patient seem to be unaware of this findings despite following with Cardiology. Cards consult. DS: Summary Hospital Course Hospital Course: Patient was admitted for anemia and GI bleed. Had a workup which did not reveal any bleeding. Follow-up with GI as needed. He also had right lower extremity cellulitis which was moderate to severe. Started on IV antibiotics and did exceptionally well. Lower extremity is improving significantly. He can follow up with primary care physician if any further issues arise. Time Spent with Patient Time attestation: Total time spent providing and/or coordinating discharge services: Exam Narrative: Gen - NARD lying semi recumbent in bed with BiPAP in place. Chest -mild bibasilar inspiratory crackles. CV -irregularly irregular. S1-S2. Telemetry showing PVCs and atrial fibrillation with controlled rate Abd - Soft, NT/ND, Positive BS Ext -mild right lower extrem
--- NOTE | 2022-09-26 12:29 | PC.NURSE ---
Addendum entered by Malia Rice RN 09/26/22 15:41: Pt IV was removed, tip intact. Original Note: Pt discharging home with daughter. Pt has reported pain this morning and was treated with medication. Pt is ready to discharge. Will continue to monitor until discharge.
--- NOTE | 2022-09-26 14:45 | PCPTNOTE ---
On 09/26/22, the student, AUDRA Travis, provided care and completed [facility] documentation on this patient. I have reviewed the student's documentation and agree with the findings.
[2022-09-26 16:28] LABS: Chloride Rand Ur 48 mmol/L (32-290); Chloride/Creatinine Rand Ur 52 (23-275); Creatinine Random Urine 92 mg/dL (20-320)
[2022-09-29 19:20] LABS: Anti Glomerular Basement Memb <1.0 AI (<1.0)
[2022-09-30 14:00] LABS: ANCA Screen Negative (Negative)
== END 2022-09-26 14:35 | disposition home health service (06) | DRG 871 ==
LOC: ANHED 11:38 → ANHIMU 14:37 → ANH3MEDSUR 09-21 11:35
PROVIDERS: Internal Medicine; Internal Medicine Gastroenterology; Physician Assistant; Admitting Provider Internal Medicine; Emergency Provider Emergency Medicine; PCP Student in an Organized Health Care Education/Training Program; Visit Provider Chiropractor
PROC: 0DJ08ZZ Inspection of Upper Intestinal Tract, Via Natural or Artificial Opening Endoscopic (ICD-10-PCS; CPT 43235; principal; 2022-09-22 12:30)
PROC: 0DJD8ZZ Inspection of Lower Intestinal Tract, Via Natural or Artificial Opening Endoscopic (ICD-10-PCS; CPT 45378; principal; 2022-09-23 13:30)
DX: A41.9 Sepsis, unspecified organism (principal); I21.4 Non-ST elevation (NSTEMI) myocardial infarction; L03.115 Cellulitis of right lower limb; N17.9 Acute kidney failure, unspecified; I50.30 Unspecified diastolic (congestive) heart failure; D62 Acute posthemorrhagic anemia; Z20.822 Contact with and (suspected) exposure to COVID-19; R19.5 Other fecal abnormalities; K29.70 Gastritis, unspecified, without bleeding; K63.5 Polyp of colon; K64.8 Other hemorrhoids; I48.0 Paroxysmal atrial fibrillation; I35.0 Nonrheumatic aortic (valve) stenosis; I25.10 Atherosclerotic heart disease of native coronary artery without angina pectoris; E78.5 Hyperlipidemia, unspecified; E11.9 Type 2 diabetes mellitus without complications; K57.30 Diverticulosis of large intestine without perforation or abscess without bleeding; I11.0 Hypertensive heart disease with heart failure; G47.33 Obstructive sleep apnea (adult) (pediatric); J44.9 Chronic obstructive pulmonary disease, unspecified; G25.81 Restless legs syndrome; Z79.82 Long term (current) use of aspirin; Z99.81 Dependence on supplemental oxygen; Z87.891 Personal history of nicotine dependence; Z79.01 Long term (current) use of anticoagulants; Z95.5 Presence of coronary angioplasty implant and graft; E66.9 Obesity, unspecified; Z68.35 Body mass index [BMI] 35.0-35.9, adult
CPT/HCPCS: 36415; 36430; 71046; 76775; 80048; 80053; 80069; 81001; 82436; 82550; 82565; 82570; 82595; 82948; 83036; 83520; 83605; 83735; 83880; 84100; 84133; 84156; 84300; 84439; 84443; 84480; 84484; 85014; 85018; 85025; 85027; 85610; 85652; 85730; 85999; 86036; 86038; 86060; 86140; 86160; 86162; 86225; 86850; 86900; 86901; 86923; 87040; 87637; 88305; 93005; 93306; 94640; 96361; 96365; 96366; 96367; 96375; 96376; 97110; 97116; 97161; 97165; 97530; 97535; 99285; A9270; C9113; G0378; J0295; J0692; J1836; J1940; J2704; J3370; J7050; J7120; P9016

== ENCOUNTER 2022-11-22 05:19 | Outpatient (CLI) | payer OTHER, MEDICAID, SELFPAY ==
--- NOTE | 2022-11-22 06:34 | SUR.OPER ---
Patient brought to GI Lab. Instructions for patient undergoing Capsule Endoscopy reviewed with patient. Consent form signed. Sensor array applied to patient's abdomen and connected to recorded. Patient swallowed capsule with 16 ozs of water infused with Simethicone. Patient instructed they may have clear liquids at 0825 this AM and eat or drink at 1025 this AM. Patient instructed to return to GI Lab at 1500 this afternoon for removal of recording device and to call [phone] or to return to the hospital if any nausea and vomiting or abdominal pain is experienced.
--- NOTE | 2022-11-22 14:37 | SUR.PREOP ---
Patient returned to the GI Lab at 1432 for recorder box removal. Patient voiced no complaints. States they have understanding of instructions. Patient left ambulatory.
== END 2022-11-22 05:20 | disposition home or self-care (01) ==
PROVIDERS: PCP Student in an Organized Health Care Education/Training Program; Visit Provider Internal Medicine Gastroenterology
PROC: 0DJ07ZZ Inspection of Upper Intestinal Tract, Via Natural or Artificial Opening (ICD-10-PCS; CPT 91110; principal; 2022-11-22 07:00)
DX: Z01.818 Encounter for other preprocedural examination (principal)
CPT/HCPCS: 91110

== ENCOUNTER 2023-08-01 13:49 | Outpatient (CLI) | payer OTHER, MEDICAID, SELFPAY ==
--- NOTE | ~2023-08-01 | CT_ITS ---
CT of the Abdomen: Indication: Renal mass Technique: 2.5 mm axial scans were obtained through the abdomen prior to and following intravenous a dministration of 100 cc of Omnipaque 350. Dose reduction technique was used on this scan by utilizing automated exposure control and iterative reconstruction technique. The dose-length product (DLP) was 1981.39 mGy-cm. Findings: Scans through the lung bases are unremarkable. The liver, spleen, pancreas, gallbladder, adrenal glands are within normal limits. There is a 2.5 cm hyperdense left upper pole renal cyst without significant postcontrast enhancement. Additional simple left renal cysts present. Small nonobstructing left renal stones measuring up to 3 mm. Right kidney unremarkable. There are atherosclerotic calcifications of the aorta. No lymphadenopathy. Visualized bowel loops are unremarkable. No ascites. There is extensive degenerative spondylosis in the spine with mild compression deformities of T11 and T12. Impression: 2.5 cm hyperdense left renal cyst with additional simple left renal cysts. Small nonobstructing left renal stones, as above. Reviewed, dictated and finalized at [facility]. Impression: 2.5 cm hyperdense left renal cyst with additional simple left renal cysts. Small nonobstructing left renal stones, as above.
[2023-08-01 14:13] LABS: Estimated Glomerular Filt Rate 39
== END 2023-08-01 13:50 | disposition home or self-care (01) ==
LOC: ANHIMG 13:50
PROVIDERS: PCP Student in an Organized Health Care Education/Training Program; Visit Provider Urology
DX: N28.89 Other specified disorders of kidney and ureter (principal); N28.1 Cyst of kidney, acquired; N20.0 Calculus of kidney
CPT/HCPCS: 74170; Q9967

== ENCOUNTER 2024-02-05 11:55 | Outpatient (CLI) | payer OTHER, SELFPAY ==
--- NOTE | ~2024-02-05 | CT_ITS ---
EXAMINATION: CT abdomen wo/w con DATE: 02/05/2024 12:48 INDICATION: Renal mass TECHNIQUE: Computed tomography (CT) of the abdomen was performed without and with 100 mL Omnipaque-35 0 intravenous contrast. Automated exposure control and iterative reconstruction technique were employ ed. The dose-length product was 1837.60 mGy-cm. COMPARISON: None FINDINGS: Lung bases are clear. Heart size is normal. Atherosclerotic coronary artery calcifications. Aortic va lve repair. No pericardial or pleural effusion. Liver, gallbladder, pancreas and right adrenal glands are normal. 1.3 cm low-attenuation left adrenal adenoma. Small splenic calcific location consistent with old granulomatous disease. Bilateral fluid attenuation renal cysts the largest on the left measu ring 4.5 cm. There are couple intermediate attenuation nonenhancing complex proteinaceous/hemorrhagic cyst at the left kidney the larger measuring 2.4 cm the upper pole and the smaller measuring 1.4 cm at the lower pole. 3 nonobstructing stones at the left kidney the largest measuring up to 3-4 mm. The re are few scattered colonic diverticula without adjacent from trace stranding to suggest diverticula r colitis. Appendix and visualized portion of the small bowel are unremarkable. No pathologically enl arged abdominal or upper pelvic lymphadenopathy. Severe thoracolumbar spondylosis with chronic anteri or wedging of several vertebral bodies at the lower thoracic and upper lumbar spine. IMPRESSION: 1. Multiple bilateral renal cysts including a couple unchanged nonenhancing hyperdense proteinaceous/ hemorrhagic cyst in the left kidney measuring 2.4 cm and 1.4 cm. 2. Nonobstructing left nephrolithiasis. Reviewed, dictated and finalized at [facility] IMPRESSION: 1. Multiple bilateral renal cysts including a couple unchanged nonenhancing hyp erdense proteinaceous/hemorrhagic cyst in the left kidney measuring 2.4 cm and 1.4 cm. 2. Nonobstructing left nephrolithiasis.
[2024-02-05 12:39] LABS: Estimated Glomerular Filt Rate 39
== END 2024-02-05 11:56 | disposition home or self-care (01) ==
PROVIDERS: PCP Student in an Organized Health Care Education/Training Program; Visit Provider Urology
DX: N28.1 Cyst of kidney, acquired (principal); N20.0 Calculus of kidney; N28.89 Other specified disorders of kidney and ureter
CPT/HCPCS: 74170; Q9967

== ENCOUNTER 2024-05-23 15:00 | Outpatient (RCR) | payer MEDICARE, SELFPAY ==
--- NOTE | 2024-04-29 14:58 | OPREHPOC ---
Outpatient Therapy Plan of Care This is a Multidisciplinary Plan of Care that may contain components documented by all disciplines (PT, OT, and ST.) PT Problem 1 PT Problem #1 Knowledge Deficit PT Goal 1 Goal / Goal Update [place] with HEP Target Visit 4 PT Goal 2 Goal / Goal Update Report no pain greater than 2/10 for 2 consecutive weeks PT Problem 2 PT Problem #2 Impaired Range of Motion PT Goal 1 Goal / Goal Update 1. Demonstrate 165 degrees of thelma shoulder flexion motion to improve active reach 2. Improve L shoulder external rotation ROM to 60 degrees to improve self care and behind head reach Target Visit 8 PT Problem 3 PT Problem #3 Impaired Strength PT Goal 1 Goal / Goal Update Improve gross left shoulder strength to 4-/5 to improve object lift and stabilization of shoulder Target Visit 8
--- NOTE | 2024-04-29 14:58 | PTOPEVAL1 ---
Assessment and note entered by Bang Wiggins, PT Evaluation Information Assessment Status Evaluation Diagnosis Rotaor cuff syndrome ICD-10 Condition Codes (PT) Pain in right shoulder M25.511,Pain in left shoulder M25.512 Onset 2023 Subjective Information Reports that he is getting pain in the top of the shoulder with radiating to posterior shoulder. No pain below elbow or into hand. Occasionally gets neck pain but has not happened in over a month. He is right handed. He has been taking Tylenol for pain but has not had to take any for pain in the past week. Reports that he has been sleeping better now that he is used to the pain but has to elevate his arm to get comfortable. Reported Pain Level Pain Score 3: Self Report Assessment PT Clinical Summary Patient presents with thelma shoulder pain with greater functional deficits noted on left shoulder . 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 Patient will benefit from skilled therapy to address these deficits. We did discuss possibility of referring to orthopedic department given degree of left shoulder deficits. Plan of Care Interventions Hot Pack/Cold Pack,Manual Therapy,Neuro Re- education,Therapeutic Activities,Therapeutic Exercise PT Services Indicated Yes Treatment Frequency and 2x/week for 8 visits Duration These treatments will address the objective and functional deficits as defined above. The patient will be advanced safely and appropriately in order for the patient to progress towards his/her prior level of function. Additional exercises will be introduced and as well as a comprehensive home exercise program upon discharge, if needed, ?to ensure carryover of functional gains achieved in the clinic. This treatment plan has been reviewed and agreement upon by the patient.
--- NOTE | 2024-05-23 17:38 | PTOPDC ---
Assessment and note entered by Bang Wiggins, PT Evaluation Information Assessment Status Discharge Diagnosis Rotaor cuff syndrome ICD-10 Condition Codes (PT) Pain in right shoulder M25.511,Pain in left shoulder M25.512 Onset 2023 Subjective Information Reports that overall right shoulder is doing better but he does not feel like he can use his left shoulder much at this point. Continues to get a lot of discomfort with left shoulder movement. Overall pain is significantly improved and he would like to manage with HEP at this time. Reported Pain Level Pain Score 0: Self Report Assessment PT Clinical Summary Patient has seen progress in shoulder ROM. We have not seen significant strength improvement to this date. Patient has understanding of these improvements and reflects the importance of continuing with ROM exercises. He is suitable for discharge at this time to [facility]. Plan of Care PT Services Indicated Yes
== END 2024-05-24 08:27 | disposition home or self-care (01) ==
LOC: ANHPT 15:00
PROVIDERS: PCP Student in an Organized Health Care Education/Training Program; Visit Provider Student in an Organized Health Care Education/Training Program
DX: M25.511 Pain in right shoulder (principal); M67.919 Unspecified disorder of synovium and tendon, unspecified shoulder; M25.512 Pain in left shoulder
CPT/HCPCS: 97110; 97140; 97161